=== PATIENT | female | born 1965 | race Caucasian/White ===

== ENCOUNTER 2025-01-01 10:28 | Inpatient (IN) ==
--- NOTE | 2025-01-01 10:45 | Emergency Department Note ---
Impression & Plan Pulmonary embolism, UTI (urinary tract infection), CHF exacerbation ED Provider Note Provider: Emerson Angelo MD CHIEF COMPLAINT: Shortness of breath, send source, urinary symptoms HISTORY OF PRESENT ILLNESS: Patient is a 59-year-old female past medical history significant for type 2 diabetes on insulin, heart failure, hypertension, CAD with stenting, neuropathy, depression presenting here to be ambulance from her apartment today. Patient states that her last day or 2 she has been develop worsening shortness of breath. Does states she has had some dietary discretion but having some salt and think she might be a little more swollen than normal. Has been taking most of her medicines she states but did not take them yet this morning. Did not take extra torsemide. Reports she has had some urinary frequency and discomfort. Also reports over the last several weeks has been dealing with a small skin scab and wound on the back of her right neck as well as in the right hip. Maybe little bit of blood or serous discharge from the but no pus reported by the patient. She thinks he might of scratched them some. Was seen by her primary doctor regarding these advised some cream and completed a course of Bactrim. No fevers reported. Denies significant chest pain at this time or abdominal pain. EMS did give a DuoNeb with some mild improvement of her breathing status although she was not reported to be hypoxic for them. Denies a history of asthma or smoking. Patient does states her blood sugars have been running high. PAST MEDICAL HISTORY: As noted above MEDICATIONS: Reviewed home medication list although did not take them yet this morning SOCIAL HISTORY: Non-smoker, resides via self at [facility] PHYSICAL EXAM: GENERAL: alert and oriented in no acute distress on stretcher Head: normocephalic and atraumatic EYES: No injection, discharge or icterus. PERRL, EOMI. NECK: Trachea midline. Supple. ENT: Mucous membranes pink and moist. Pharynx without erythema or exudate. LUNGS: Airway patent. No retractions but somewhat tachypneic. Breath sounds clear with good air entry bilaterally. HEART: Regular rate and rhythm. No chest wall tenderness ABDOMEN: Soft and non-tender, without guarding or rebound. Stable pelvis. SKIN: Acyanotic, warm, dry, with approximately 1 cm area of the right posterior hairline neck region of some scabbing ulceration without surrounding erythema or fluctuance as well as an approximate 2 cm area of the right lateral hip in the greater trochanter region. EXTREMITIES: Without swelling, tenderness or deformity NEUROLOGICAL: No focal deficits. No aphasia. No facial droop or slurred speech. Normal strength and tone in the extremities. Sensation to gross touch normal. Ambulatory. EK bpm normal sinus rhythm. No acute ST segment elevation or depression with nonspecific T wave flattening. QTc 474. CONTINUOUS CARDIAC MONITORING: was ordered and showed a heart rate of 80s to 90s bpm in normal sinus rhythm PDMP was checked without noted issue. GCS 15. Patient's laboratory studies and imaging reviewed. Differential includes Reactive airway disease, pneumonia, pneumothorax, COPD, CHF, infections, cardiac ischemia, pulmonary embolism, musculoskeletal, gastrointestinal, as well as other pathologies. IMPRESSION/MEDICAL DECISION MAKING: Case management assisted with additional records from [facility] as the patient does not have records in our system. Patient evidently does have a history of some urinary frequency in the past and has been maintained on a SGLT2 medication could be contributing to her polyuria especially in light of elevated blood sugars. No fevers reported. No significant trauma reported. Somewhat tachypneic but not particularly wheezy. Does seem somewhat fluid overloaded and swollen. Question of component of possible fluid overload/CHF/pulmonary hypertension might be at play. Blood work checked here without evidence of significant anemia or leukocytosis. Chest x-ray per radiology and my review shows cardiomegaly without evidence of significant pulmonary edema or effusion. Creatinine less than 1 without severe electrolyte abnormalities again with elevated blood sugar 441 here. Will provide some Lasix for some additional diuresis and again attempt a urinalysis collection to exclude UTI. Very slight hypoxia 88%. Give a small additional dose of insulin given the hyperglycemia here. Patient with some small areas of ulceration at the neck and thigh do not appear like abscesses or severely inflamed. She does not appear septic. Will give a dose of doxycycline for any possible small cellulitis that these areas are MRSA but certainly does not appear to have a disseminated infection/sepsis at this point. Patient placed on oxygen for comfort and is not hypoxic here. Given her ongoing respiratory symptoms however to complete a CT of the chest to exclude PE. Small segmental PE noted with some possible acute or chronic congestive change. Again being diuresed. Will anticoagulate with the PE findings and heparin drip was ordered. UA questionable for infection with nitrates and bacteria. Covered empirically with ceftriaxone. Discussed with the patient we will bring her in for further care. She is agreeable with this plan. Urine sent for culture today. Hospitalist team contacted. DIAGNOSIS: Shortness of breath, wounds, hyperglycemia secondary to type 2 diabetes DISPOSITION: Hospitalist will evaluate Patient was agreeable with this plan. Critical Care I have personally spent 33 minutes of critical care time in the direct management of this patient. This includes bedside care, interpretation of diagnostic studies, and testing, discussion with consultants, patient, and other required patient management activities. These 33 minutes is in excess of all separately billable procedures. Past Med/Surg History Problem List (Updated 01/01/25 @ 16:00 by Emerson Angelo M.D.) Flank pain CHF exacerbation (Acute) UTI (urinary tract infection) (Acute) Pulmonary embolism (Acute) Medical History (Updated 01/01/25 @ 16:00 by Emerson Angelo M.D.) Gout HFrEF (heart failure with reduced ejection fraction) Anxiety History of osteomyelitis Depression Peripheral polyneuropathy Venous stasis of both lower extremities Primary osteoarthritis of both knees Acquired absence of left great toe Overactive bladder BMI 60.0-69.9, adult Coronary artery disease Hypertension EDGARD treated with BiPAP Dyslipidemia Type 2 diabetes mellitus Surgical History (Updated 01/01/25 @ 14:56 by CONCHA Doan) Status post amputation of left great toe S/P angioplasty with stent S/P ICD (internal cardiac defibrillator) procedure Family History (Updated 01/01/25 @ 14:59 by CONCHA Doan) Mother Heart disease Pancreatic cancer Father Heart disease Diabetes Sister Heart disease Thyroid cancer Grandmother (Maternal) Breast cancer Aunt Breast cancer Daughter Heart disease Diabetes Son Heart disease Diabetes Hypertension Social History (Updated 01/01/25 @ 14:59 by CONCHA Doan) Smoking Status: Never smoker Hx Alcohol Use: No Hx Substance Use: No Preferred Language: Yi Communication Ability: Effective Current Living Situation Comment: [facility] Feels Safe at Home: Yes Assistive Devices: Wheelchair Allergies Allergies Allergy/AdvReac Type Severity Reaction Status Date / Time spironolactone AdvReac Unknown Unknown Verified 06/29/24 11:02 Home Meds Home Medications Medication Instructions Recorded Confirmed allopurinol 100 mg tablet 100 mg PO QAM 01/01/25 01/01/25 aspirin 81 mg tablet,delayed 81 mg PO DAILY 01/01/25 01/01/25 release bupropion HCl 150 mg tablet,12 hr 150 mg PO QAM 01/01/25 01/01/25 sustained-release cholecalciferol (vitamin D3) 50 50 mcg PO DAILY 01/01/25 01/01/25 mcg (2,000 unit) capsule (Vitamin D3) clopidogrel 75 mg tablet 75 mg PO DAILY 01/01/25 01/01/25 colchicine 0.6 mg tablet 0.6 mg PO QAM 01/01/25 01/01/25 dulaglutide 1.5 mg/0.5 mL 1.5 mg subcut WK 01/01/25 01/01/25 subcutaneous pen injector (Trulicity) empagliflozin 10 mg tablet 10 mg PO QAM 01/01/25 01/01/25 (Jardiance) glipizide 10 mg tablet 10 mg PO QAM 01/01/25 01/01/25 insulin glargine 100 unit/mL (3 67 unit subcut HS 01/01/25 01/01/25 mL) subcutaneous pen (Lantus Solostar U-100 Insulin) metoprolol succinate 25 mg 25 mg PO QAM 01/01/25 01/01/25 tablet,extended release 24 hr sacubitril 97 mg-valsartan 103 mg 1 tab PO QAM 01/01/25 01/01/25 tablet (Entresto) sertraline 100 mg tablet 200 mg PO DAILY 01/01/25 01/01/25 torsemide 20 mg tablet 20 mg PO QAM 01/01/25 01/01/25 vitamin B complex 1 tab PO DAILY 01/01/25 01/01/25 Results & Data (ED) Vital Signs Vital Signs - 24 hr 01/01/25 10:30 01/01/25 10:48 01/01/25 10:49 Temperature 36.8 C Temperature Source Oral Pulse Rate 90 Pulse Rate [Apical] Pulse Rhythm Regular Pulse Strength Normal Respiratory Rate 25 H Respiratory Effort / Characteristics Spontaneous SOB on Exertion Spontaneous SOB on Exertion Respiratory Depth Normal Respiratory Pattern Regular Tachypnea Regular Blood Pressure 149/64 H Blood Pressure [Right Arm] Blood Pressure Mean 92 Blood Pressure Mean [Right Arm] Blood Pressure Position Semi-fowlers Blood Pressure Position [Right Arm] Pulse Oximetry 95 94 Oxygen Delivery Method Room Air Room Air Room Air Oxygen Flow Rate Sepsis New/Unexplained Change in Mental Status No Sepsis Action Taken by Nursing No Action Required Oxygen Flow Rate - Titration Pulse Oximetry Post Tiitration 01/01/25 11:00 01/01/25 11:06 01/01/25 11:52 Temperature Temperature Source Pulse Rate Pulse Rate [Apical] 87 Pulse Rhythm Pulse Strength Respiratory Rate 25 H Respiratory Effort / Characteristics Non-Labored Spontaneous Respiratory Depth Normal Respiratory Pattern Blood Pressure Blood Pressure [Right Arm] 126/68 Blood Pressure Mean Blood Pressure Mean [Right Arm] 87 Blood Pressure Position Blood Pressure Position [Right Arm] Semi-fowlers Pulse Oximetry 92 98 88 L Oxygen Delivery Method Nasal Cannula Nasal Cannula Room Air Nasal Cannula Oxygen Flow Rate 2 4 Sepsis New/Unexplained Change in Mental Status Sepsis Action Taken by Nursing Oxygen Flow Rate - Titration 0 2 Pulse Oximetry Post Tiitration 94 96 01/01/25 13:02 01/01/25 13:31 Temperature Temperature Source Pulse Rate 92 H Pulse Rate [Apical] 84 Pulse Rhythm Pulse Strength Respiratory Rate 29 H Respiratory Effort / Characteristics Non-Labored Spontaneous Respiratory Depth Normal Respiratory Pattern Blood Pressure Blood Pressure [Right Arm] 144/78 H Blood Pressure Mean Blood Pressure Mean [Right Arm] 100 Blood Pressure Position Blood Pressure Position [Right Arm] Semi-fowlers Pulse Oximetry 95 Oxygen Delivery Method Nasal Cannula Oxygen Flow Rate 2 Sepsis New/Unexplained Change in Mental Status Sepsis Action Taken by Nursing Oxygen Flow Rate - Titration Pulse Oximetry Post Tiitration Laboratory Data 01/01/25 10:45 01/01/25 10:45 Lab Results 01/01/25 01/01/25 Range/Units 10:45 11:58 WBC 10.02 (4.8-10.8) K/ul RBC 5.26 (4.20-5.40) M/uL Hgb 13.6 (12.0-16.0) g/dl Hct 42.3 (37.0-47.0) % MCV 80.4 (80.0-100.0) fL MCH 25.9 (25.0-34.0) pg MCHC 32.2 (32.0-36.0) g/dL RDW Std Deviation 49.0 H (36.4-46.3) fL RDW Coeff of Anne 17.1 H (11.5-14.5) % Plt Count 210 (130-400) K/uL MPV 10.5 (9.4-12.4) fL Immature Gran % (Auto) 0.3 % Neut % (Auto) 73.0 % Lymph % (Auto) 17.2 % Bremer % (Auto) 6.6 % Eos % (Auto) 2.1 % Baso % (Auto) 0.8 % Neut # (Auto) 7.32 H (1.40-6.50) K/uL Lymph # (Auto) 1.72 (1.20-3.40) K/uL Bremer # (Auto) 0.66 H (0.11-0.59) K/uL Eos # (Auto) 0.21 (0.00-0.50) K/uL Baso # (Auto) 0.08 (0.00-0.20) K/uL Immature Gran # (Auto) 0.03 (0.01-0.20) K/uL PT 10.9 (9.0-12.0) Seconds INR 1.0 (0.9-1.1) Sodium 133 L (136-145) mmol/L Potassium 4.7 (3.5-5.1) mmol/L Chloride 99 (98-107) mmol/L Carbon Dioxide 25 (21-32) mmol/L Anion Gap 9 (3-11) BUN 24 H (6-23) mg/dl Creatinine 0.94 (0.6-1.2) mg/dl Est Cr Clr Drug Dosing 95.8 ml/min eGFR 69.47 BUN/Creatinine Ratio 25.5 H (10-20) Glucose 441 H* (70-99(Fasting)) mg/dl Calcium 9.1 (8.6-10.3) mg/dl Magnesium 2.1 (1.7-2.4) mg/dl Total Bilirubin 0.5 (0.2-1.0) mg/dl AST 13 (13-39) U/L ALT 14 (7-52) U/L Alkaline Phosphatase 112 H (34-104) U/L Troponin I High Sens 14.1 H (0-14) pg/ml B-Natriuretic Peptide 230 H (0-100) pg/ml Total Protein 7.5 (6.0-8.3) gm/dl Albumin 3.3 L (3.4-5.0) gm/dl Globulin 4.2 H (2.5-4.0) gm/dl Albumin/Globulin Ratio 0.8 L (0.9-2) Procalcitonin 0.03 (0-0.5) ng/ml TSH 3.275 (0.300-4.500) uIu/ml Urine Color Yellow Urine Appearance Clear (Clear) Urine pH 5.0 (4.5-7.5) Ur Specific [place] 1.037 H (1.000-1.030) Urine Protein Trace H (Negative) Urine Glucose (UA) 3+ H (Negative) Urine Ketones Negative (Negative) Urine Blood 1+ H (Negative) Urine Nitrite Positive A (Negative) Urine Bilirubin Negative (Negative) Urine Urobilinogen Negative (Negative) Ur Leukocyte Esterase Negative (Negative) Urine WBC (Auto) 0-5 (0-5) /hpf Urine RBC (Auto) 0-2 (0-2) /hpf U Hyaline Cast (Auto) 0-2 (0-2) /lpf U Epithel Cells (Auto) 0-2 (0-2) /hpf Urine Bacteria (Auto) 4+ H (None Seen) Urine Comment SARS-CoV-2 (PCR) NEGATIVE (Negative) Influenza Type A (PCR) Negative (Neg) Influenza Type B (PCR) Negative (Neg) RSV (RT-PCR) Negative (Neg) Administered Medications Heparin Sodium/Dextrose (Heparin 95395 Unit/500 Ml D5w) 25,000 units in 500 mls @ 34 mls/hr IV .[id number] [facility]; Protocol Stop: 01/31/25 12:59 Last Admin: 01/01/25 13:42 Dose: 1,700 units/hr, 34 mls/hr Documented By: DARIUS Co-signed By: CHRISTAL Discontinued Medications Doxycycline Hyclate (Doxycycline Hyclate 100 Mg Cap) 100 mg PO NOW STA Stop: 01/01/25 11:27 Last Admin: 01/01/25 11:52 Dose: 100 mg Documented By: MMF Furosemide (Furosemide 40 Mg/4 Ml Vial) 80 mg IV ONE ONE Stop: 01/01/25 11:27 Last Admin: 01/01/25 11:52 Dose: 80 mg Documented By: MMF Heparin Sodium (Porcine) (Heparin Sod (Porcine) 1000 Unit/Ml) 1 units IV NOW ONE Stop: 01/01/25 12:56 Last Admin: 01/01/25 13:43 Dose: 8,000 units Documented By: DARIUS Co-signed By: CHRISTAL Heparin Sodium/Dextrose (Heparin Iv Adult Wt-Based Standard W/ Initial Bolus Protocol) 1 each IV NOW STA; Protocol Stop: 01/01/25 12:41 Last Admin: 01/01/25 13:33 Dose: Not Given Documented By: DARIUS Ceftriaxone Sodium (Rocephin) 2,000 mg in 50 mls @ 100 mls/hr IV NOW STA Stop: 01/01/25 13:03 Last Infusion: 01/01/25 13:42 Dose: Infused Documented By: Admin: 01/01/25 13:16 Dose: 100 mls/hr Documented By: DARIUS Insulin Human Regular (Novolin-R Insulin Per Unit Charge) 8 units IV NOW STA Stop: 01/01/25 11:28 Last Admin: 01/01/25 11:52 Dose: 8 units Documented By: DARIUS Co-signed By: DANDY Ioversol (Optiray 320 125ml) 119 ml IV ONCE ONE Stop: 01/01/25 12:07 Last Admin: 01/01/25 12:06 Dose: 119 ml Documented By: SAV Imaging Data Radiologist's Impression: Chest X-Ray 01/01/25 10:41 SINGLE VIEW CHEST CLINICAL HISTORY: Dyspnea. Lower extremity edema FINDINGS: An AP, portable, upright chest radiograph is compared to study dated 06/27/2024. A 2-lead cardiac AICD is unchanged in position. The heart is enlarged noting atherosclerotic calcification of the thoracic. There is pulmonary vascular congestion with interstitial edema. No large pleural effusion or pneumothorax is seen. The skeletal structures are osteopenic. The bony thorax is grossly intact. IMPRESSION: Cardiomegaly and AICD without evidence of congestive failure and pulmonary edema. Radiographic follow-up to resolution is recommended. ACT 112: Negative or not required by law. Electronically signed by: Corby Garza M.D. 01/01/2025 11:20 AM Chest CTA 01/01/25 11:25 CT ANGIOGRAM OF THE CHEST CLINICAL HISTORY: Dyspnea COMPARISON STUDY: Chest x-ray dated 01/01/2025 TECHNIQUE: Following the IV administration of 119 cc of Optiray 320, CT angiogram of the chest was performed from the upper abdomen to the thoracic inlet utilizing the pulmonary embolus protocol. Images are reviewed in the axial, sagittal, and coronal planes. 3-D MIPS images are created and assessed. IV contrast was administered without complication. A dose lowering technique was utilized adhering to the principles of ALARA. The examination is degraded by suboptimal contrast opacification of the pulmonary arteries. There is also streak artifact from the body wall abutting the CT gantry. CT DOSE: 1178.89 mGy.cm FINDINGS: Thyroid: Imaged portions of the thyroid gland are normal in size and attenuation. Thoracic aorta: There is mild atherosclerotic calcification of the thoracic aorta, which is normal in caliber and demonstrates standard 3-vessel arch anatomy. No dissection is seen. Pulmonary vasculature: The pulmonary trunk is normal in caliber. There are apparent filling defects within an anterior branch of the right upper lobe pulmonary artery seen on image #166 that likely represent subsegmental pulmonary emboli. No additional pulmonary emboli are identified bilaterally. Heart: A cardiac pacemaker is seen in the left chest wall. The heart is enlarged and without pericardial effusion. The coronary arteries are densely calcified. Lungs and pleural spaces: Evaluation of the lung parenchyma is modestly degraded by motion artifact. There is no airspace consolidation or pleural effusion. Mild intralobular septal thickening could represent acute versus chronic congestive change. The trachea and central airways are clear. 4 mm pulmonary nodules are seen at the left lung base on image #57, #65, and #76. There is a 4 mm right lower lobe pulmonary nodule seen on image #86. Mediastinum: There is no mediastinal lymphadenopathy. Vandana: Clear. Axillae: There is no axillary lymphadenopathy. Upper abdomen: The liver is enlarged and osteoporotic. Peripheral calcified splenic artery aneurysms measure up to 8 mm. A small hiatal hernia is noted. Skeletal structures: The skeletal structures are osteopenic. Degenerative change is noted in the shoulders and spine. No lytic or blastic bony lesions are seen. There are chronic/healed right-sided rib fractures. IMPRESSION: 1. There are apparent filling defects within a segmental branch of the right upper lobe pulmonary artery, likely representing pulmonary embolus. 2. No additional pulmonary emboli are seen. 3. Cardiomegaly and cardiac pacemaker. 4. Moderate lower septal thickening could be seen with acute versus chronic congestive change. Correlate clinically. 5. No airspace consolidation or pleural effusion is identified. 6. The liver is enlarged and see ptotic. 7. Low suspicion pulmonary nodules measured up to 4 mm. If warranted these can be followed as per the Fleischner criteria. See below. Please refer to below summary of Fleischner criteria recommendations for follow- up of incidental CT nodules (Jose Luis Casiano, Guidelines for management of small pulmonary nodules detected on CT scans: A statement from the Fleischner Society, Radiology 237: [phone].) SOLID NODULES Solitary nodule size: <6 mm * low risk patients: no follow-up needed * high risk patients: optional CT at 12 months Solitary nodule size: 6-8 mm * low risk patients: follow-up at 6-12 months, then consider further follow-up at 18-24 months * high risk patients: initial follow-up CT at 6-12 months and then at 18-24 months if no change Solitary nodule size: >8 mm * either low or high risk patients - consider follow-up CT at 3 months, and/or CT-PET, and/or biopsy Multiple nodules size: <6 mm * low risk patients: no routine follow-up * high risk patients: optional CT at 12 months Multiple nodules size: 6-8 mm * low risk patients: follow-up at 3-6 months, then consider further follow-up at 18-24 months * high risk patients: follow-up at 3-6 months, then at 18-24 months if no change Multiple nodules size: >8 mm * low risk patients: follow-up at 3-6 months, then consider further follow-up at 18-24 months * high risk patients: follow-up at 3-6 months, then at 18-24 months if no change Note: newly detected indeterminate nodule in persons 35 years of age or older. * low risk patients: minimal or absent history of smoking and/or other known risk factors * high risk patients: history of smoking or of other known risk factors (e.g. first degree relative with lung cancer, or exposure to asbestos, radon, uranium) * if a nodule up to 8 mm is partly solid or is ground glass further follow-up is required after 24 months to exclude possible slow growing adenocarcinoma (RUPA) SUBSOLID NODULES Solitary pure ground-glass nodule * nodule size <6 mm - no CT follow-up required * nodule size >=6 mm - follow-up CT at 6-12 months, then every 2 years until 5 years Solitary part-solid nodule * nodule size <6 mm - no CT follow-up required * nodule size >=6 mm - follow-up CT at 3-6 months. If unchanged, and solid component remains <6 mm, then annual follow-up for 5 years Multiple subsolid nodules * nodule size <6 mm - follow-up CT at 3-6 months, consider further follow-up at 2 and 4 years if stable * nodule size >=6 mm - follow-up CT at 3-6 months, subsequent management based on the most suspicious nodule(s) ACT 112: Negative or not required by law. Electronically signed by: Corby Garza M.D. 01/01/2025 12:32 PM Discharge Plan Visit Data Chief Complaint: Shortness of Breath/Dyspnea Stated Complaint: SOB, URINARY SX ED Provider: Emerson Angelo Discharge Problem: Pulmonary embolism, UTI (urinary tract infection), CHF exacerbation Patient Disposition: Being Evaluated by Hospitalist Condition: Fair Discharge Instructions Interventions: ED Discharge Assessment Last Done: 01/01/25 15:10
[2025-01-01 11:01] LABS: Hematocrit (blood only) 42.3 % (37.0-47.0); Hemoglobin 13.6 g/dl (12.0-16.0); Immature Granulocytes # (auto) 0.03 K/uL (0.01-0.20); Immature Granulocytes % (auto) 0.3 %; Mean Corpuscular Hemoglobin 25.9 pg (25.0-34.0); Mean Corpuscular Volume 80.4 fL (80.0-100.0); Platelet Count 210 K/uL (130-400); RDW Standard Deviation 49.0 fL (36.4-46.3); Red Blood Count 5.26 M/uL (4.20-5.40); White Blood Count 10.02 K/ul (4.8-10.8)
[2025-01-01 11:21] LABS: Alanine Aminotransferase 14.0 U/L (7-52); Albumin Globulin Ratio 0.8 (0.9-2); Alkaline Phosphatase 112.0 U/L (34-104); Anion Gap 9.0 (3-11); Bilirubin,Total 0.5 mg/dl (0.2-1.0); Blood Urea Nitrogen 24.0 mg/dl (6-23); Calcium 9.1 mg/dl (8.6-10.3); Carbon Dioxide 25.0 mmol/L (21-32); Chloride 99.0 mmol/L (98-107); Creatinine Clr Calc Pharmacy 95.8 ml/min; Globulin 4.2 gm/dl (2.5-4.0); Glucose 441.0 mg/dl (70-99(Fasting)); Magnesium 2.1 mg/dl (1.7-2.4); Potassium 4.7 mmol/L (3.5-5.1); Sodium 133.0 mmol/L (136-145); Total Protein 7.5 gm/dl (6.0-8.3)
--- NOTE | 2025-01-01 11:22 | XRay Report ---
SINGLE VIEW CHEST CLINICAL HISTORY: Dyspnea. Lower extremity edema FINDINGS: An AP, portable, upright chest radiograph is compared to study dated 06/27/2024. A 2-lead car diac AICD is unchanged in position. The heart is enlarged noting atherosclerotic calcification of the thoracic. There is pulmonary vascular congestion with interstitial edema. No large pleural effusion or pneumothorax is seen. The skeletal structures are osteopenic. The bony thorax is grossly intact. IMPRESSION: Cardiomegaly and AICD without evidence of congestive failure and pulmonary edema. Radiogr aphic follow-up to resolution is recommended. ACT 112: Negative or not required by law. Electronically signed by: Corby Garza M.D. 01/01/2025 11:20 AM
[2025-01-01 11:25] LABS: INR 1.0 (0.9-1.1); Prothrombin Time 10.9 Seconds (9.0-12.0)
[2025-01-01 11:35] LABS: Thyroid Stimulating Hormone 3.275 uIu/ml (0.300-4.500)
[2025-01-01] MEDS: FUROSEMIDE 40 MG/4 ML VIAL IV ONE (11:52)
[2025-01-01] MEDS: DOXYCYCLINE HYCLATE 100 MG CAP PO STA (11:52)
[2025-01-01] MEDS: NovoLIN-R INSULIN PER UNIT CHARGE IV STA (11:52)
[2025-01-01] MEDS: OPTIRAY 320 125ml IV ONE (12:06)
[2025-01-01 12:23] LABS: Appearance Urine Clear (Clear); Bacteria Urine Automated 4+ (None Seen); Cast Urine Automated 0-2 /lpf (0-2); Epithelial Cell Urine Auto 0-2 /hpf (0-2); Glucose Urine UA 3+ (Negative); RBC Urine Automated 0-2 /hpf (0-2); WBC Urine Automated 0-5 /hpf (0-5)
--- NOTE | 2025-01-01 12:33 | CT Scan Report ---
CT ANGIOGRAM OF THE CHEST CLINICAL HISTORY: Dyspnea COMPARISON STUDY: Chest x-ray dated 01/01/2025 TECHNIQUE: Following the IV administration of 119 cc of Optiray 320, CT angiogram of the chest was pe rformed from the upper abdomen to the thoracic inlet utilizing the pulmonary embolus protocol. Images are reviewed in the axial, sagittal, and coronal planes. 3-D MIPS images are created and assessed. I V contrast was administered without complication. A dose lowering technique was utilized adhering to the principles of ALARA. The examination is degraded by suboptimal contrast opacification of the pul monary arteries. There is also streak artifact from the body wall abutting the CT gantry. CT DOSE: 1178.89 mGy.cm FINDINGS: Thyroid: Imaged portions of the thyroid gland are normal in size and attenuation. Thoracic aorta: There is mild atherosclerotic calcification of the thoracic aorta, which is normal in caliber and demonstrates standard 3-vessel arch anatomy. No dissection is seen. Pulmonary vasculature: The pulmonary trunk is normal in caliber. There are apparent filling defects w ithin an anterior branch of the right upper lobe pulmonary artery seen on image #166 that likely rep resent subsegmental pulmonary emboli. No additional pulmonary emboli are identified bilaterally. Heart: A cardiac pacemaker is seen in the left chest wall. The heart is enlarged and without pericard ial effusion. The coronary arteries are densely calcified. Lungs and pleural spaces: Evaluation of the lung parenchyma is modestly degraded by motion artifact. There is no airspace consolidation or pleural effusion. Mild intralobular septal thickening could rep resent acute versus chronic congestive change. The trachea and central airways are clear. 4 mm pulmon jairon nodules are seen at the left lung base on image #57, #65, and #76. There is a 4 mm right lower lo be pulmonary nodule seen on image #86. Mediastinum: There is no mediastinal lymphadenopathy. Vandana: Clear. Axillae: There is no axillary lymphadenopathy. Upper abdomen: The liver is enlarged and osteoporotic. Peripheral calcified splenic artery aneurysms measure up to 8 mm. A small hiatal hernia is noted. Skeletal structures: The skeletal structures are osteopenic. Degenerative change is noted in the shou lders and spine. No lytic or blastic bony lesions are seen. There are chronic/healed right-sided rib fractures. IMPRESSION: 1. There are apparent filling defects within a segmental branch of the right upper lobe pulmonary art aston, likely representing pulmonary embolus. 2. No additional pulmonary emboli are seen. 3. Cardiomegaly and cardiac pacemaker. 4. Moderate lower septal thickening could be seen with acute versus chronic congestive change. Correl ate clinically. 5. No airspace consolidation or pleural effusion is identified. 6. The liver is enlarged and see ptotic. 7. Low suspicion pulmonary nodules measured up to 4 mm. If warranted these can be followed as per the Fleischner criteria. See below. Please refer to below summary of Fleischner criteria recommendations for follow-up of incidental CT n odules (Jose Luis Casiano, Guidelines for management of small pulmonary nodules detected on CT scans: A sta laurence from the Fleischner Society, Radiology 237: [phone].) SOLID NODULES Solitary nodule size: <6 mm * low risk patients: no follow-up needed * high risk patients: optional CT at 12 months Solitary nodule size: 6-8 mm * low risk patients: follow-up at 6-12 months, then consider further follow-up at 18-24 months * high risk patients: initial follow-up CT at 6-12 months and then at 18-24 months if no change Solitary nodule size: >8 mm * either low or high risk patients - consider follow-up CT at 3 months, and/or CT-PET, and/or biopsy Multiple nodules size: <6 mm * low risk patients: no routine follow-up * high risk patients: optional CT at 12 months Multiple nodules size: 6-8 mm * low risk patients: follow-up at 3-6 months, then consider further follow-up at 18-24 months * high risk patients: follow-up at 3-6 months, then at 18-24 months if no change Multiple nodules size: >8 mm * low risk patients: follow-up at 3-6 months, then consider further follow-up at 18-24 months * high risk patients: follow-up at 3-6 months, then at 18-24 months if no change Note: newly detected indeterminate nodule in persons 35 years of age or older. * low risk patients: minimal or absent history of smoking and/or other known risk factors * high risk patients: history of smoking or of other known risk factors (e.g. first degree relative with lung cancer, or exposure to asbestos, radon, uranium) * if a nodule up to 8 mm is partly solid or is ground glass further follow-up is required after 24 m onths to exclude possible slow growing adenocarcinoma (RUPA) SUBSOLID NODULES Solitary pure ground-glass nodule * nodule size <6 mm - no CT follow-up required * nodule size >=6 mm - follow-up CT at 6-12 months, then every 2 years until 5 years Solitary part-solid nodule * nodule size <6 mm - no CT follow-up required * nodule size >=6 mm - follow-up CT at 3-6 months. If unchanged, and solid component remains <6 mm, then annual follow-up for 5 years Multiple subsolid nodules * nodule size <6 mm - follow-up CT at 3-6 months, consider further follow-up at 2 and 4 years if sta ble * nodule size >=6 mm - follow-up CT at 3-6 months, subsequent management based on the most suspiciou s nodule(s) ACT 112: Negative or not required by law. Electronically signed by: Corby Garza M.D. 01/01/2025 12:32 PM
[2025-01-01 13:06] LABS: Influenza A virus by PCR Negative (Neg); Influenza B virus by PCR Negative (Neg); SARS CoV2 RNA(COVID-19) Ceph NEGATIVE (Negative)
[2025-01-01] MEDS: cefTRIAXone SODIUM 2,000 MG/50 ML BAG IV STA (13:16)
[2025-01-01] MEDS: Heparin IV Adult Wt-Based Standard w/ INITIAL Bolus Protocol IV STA (13:33)
--- NOTE | 2025-01-01 13:35 | History & Physical Report ---
Date of Service January 01, 2025 Assessment & Plan (1) Pulmonary embolism: (2) CHF exacerbation: (3) UTI (urinary tract infection): (4) Flank pain: (5) HFrEF (heart failure with reduced ejection fraction): (6) Coronary artery disease: (7) Type 2 diabetes mellitus: (8) EDGARD treated with BiPAP: (9) Depression: (10) Gout: Plan 59 year old female with PMH significant for type 2 diabetes with polyneuropathy, dyslipidemia, EDGARD on Bipap, HFrEF, mixed etiology cardiomyopathy with severe LV dysfunction s/p ICD (2018), hypertension, CAD s/p stent (2015), gout, osteoarthritis, depression and anxiety who presented to the ED on 01/01/2025 with worsening SOB and was found to have a PE in her RUL. Pulmonary embolism Patient presented with SOB and was hypoxic 88% on RA in the ED Chest CTA revealed PE in RUL Obtain bilateral venous doppler Hypercoagulable labs pending Heparin gtt UTI Patient reports "hot" urine and incomplete bladder emptying UA positive with nitrites and bacteria Received ceftriaxone in the ED - continue Follow urine culture Flank pain Patient reports sharp intermittent flank pain No leukocytosis or fevers Obtain CT abdomen and pelvis Wounds Back of the neck wound x4 weeks Right hip wound x3 weeks Received doxycycline in the ED Notes hip wound is very painful - PRN tylenol and oxycodone for severe pain WOCN consult HFrEF Cardiomyopathy with severe LV dysfunction s/p ICD Hypertension Follows with [facility] last seen January 2024 Notes noncompliance with home torsemide BNP 230 but CXR without evidence of congestion or pulmonary edema Received IV lasix 80mg in ED Continue Entresto, metoprolol, torsemide Low sodium diet and 2L fluid restriction Daily weights - patient reports last known weight around 341lb with weight here 358lb Accurate I&Os CAD s/p stent Dyslipidemia Continue aspirin, plavix, atorvastatin Type 2 diabetes Admitting glucose 441 with no anion gap and negative ketones in urine Uncontrolled sugars with average glucose 297 and medication noncompliance per record review A1C 10.4 as of 12/28/2024 Home glipizide, Trulicity, Jardiance on hold while inpt BSG ACHS and SSI while inpt Glycemic pharmacy consult EDGARD Continue bipap at night and with naps Depression/anxiety Continue bupropion and sertraline Gout Continue allopurinol Home colchicine on hold while on Heparin gtt DVT Prophylaxis: Heparin gtt Code Status: FULL CODE - As per discussion at bedside with the patient. PCP: Lindsay Del Cid Disposition: admit to [facility] tele Patient seen in collaboration with Dr Puentes. Please see addendum. I spent a total of 70 minutes coordinating, documenting and providing care for this patient excluding time spent in the performance of separately billed services or time spent by another provider/QHP. Admission and Anticipated Discharge Date Admission Date: 01/01/2025 History of Present Illness Chief Complaint: SOB Primary Care Provider: Lindsay Del Cid MD 59 year old female with PMH significant for type 2 diabetes with polyneuropathy, dyslipidemia, EDGARD on Bipap, HFrEF, mixed etiology cardiomyopathy with severe LV dysfunction s/p ICD (2019), hypertension, CAD s/p stent (2016), gout, osteoarthritis, depression and anxiety who presented to the ED on 01/01/2025 with SOB since yesterday. Patient reports that she has been getting increasingly SOB at rest with associated dry cough over the last four months. She does not exert herself and is mostly wheelchair bound. However, notes an acute worsening in SOB since yesterday. Also reports two wounds that she has been trying to get into wound care for, with no success, and for this in combination with her SOB, presented to [facility] today. She has a history of HF but notes she is not compliant with taking torsemide daily due to inconvenience of having to urinate so much. She takes it about twice per week. She reports a wound on the back of her neck that started about 4 weeks ago. Also has a wound on her right hip that started about 3 weeks ago. Notes this wound is painful. Neither are improving despite wound care prescribed by PCP. She reports it feels very hot when she urinates and notes incomplete bladder emptying but denies dysuria. Reports intermittent severe sharp flank pain that wraps to her stomach x3 episodes in the last few days. Denies nausea or vomiting. Had one episode of diarrhea this morning. Denies fevers, chills, chest pain. Denies recent falls. Lives at [facility] in independent living. Allergies Allergy/AdvReac Type Severity Reaction Status Date / Time spironolactone AdvReac Unknown Unknown Verified 06/29/24 11:02 Home Medications Medication Instructions Recorded Confirmed Type allopurinol 100 mg tablet 100 mg PO QAM 01/01/25 01/01/25 History aspirin 81 mg tablet,delayed 81 mg PO DAILY 01/01/25 01/01/25 History release bupropion HCl 150 mg tablet,12 hr 150 mg PO QAM 01/01/25 01/01/25 History sustained-release cholecalciferol (vitamin D3) 50 50 mcg PO DAILY 01/01/25 01/01/25 History mcg (2,000 unit) capsule (Vitamin D3) clopidogrel 75 mg tablet 75 mg PO DAILY 01/01/25 01/01/25 History colchicine 0.6 mg tablet 0.6 mg PO QAM 01/01/25 01/01/25 History dulaglutide 1.5 mg/0.5 mL 1.5 mg subcut WK 01/01/25 01/01/25 History subcutaneous pen injector (Trulicity) empagliflozin 10 mg tablet 10 mg PO QAM 01/01/25 01/01/25 History (Jardiance) glipizide 10 mg tablet 10 mg PO QAM 01/01/25 01/01/25 History insulin glargine 100 unit/mL (3 67 unit subcut HS 01/01/25 01/01/25 History mL) subcutaneous pen (Lantus Solostar U-100 Insulin) metoprolol succinate 25 mg 25 mg PO QAM 01/01/25 01/01/25 History tablet,extended release 24 hr sacubitril 97 mg-valsartan 103 mg 1 tab PO QAM 01/01/25 01/01/25 History tablet (Entresto) sertraline 100 mg tablet 200 mg PO DAILY 01/01/25 01/01/25 History torsemide 20 mg tablet 20 mg PO QAM 01/01/25 01/01/25 History vitamin B complex 1 tab PO DAILY 01/01/25 01/01/25 History Past Med/Surg History Problem List (Updated 01/01/25 @ 16:00 by Emerson Angelo M.D.) Flank pain CHF exacerbation (Acute) UTI (urinary tract infection) (Acute) Pulmonary embolism (Acute) Medical History (Updated 01/01/25 @ 16:00 by Emerson Angelo M.D.) Gout HFrEF (heart failure with reduced ejection fraction) Anxiety History of osteomyelitis Depression Peripheral polyneuropathy Venous stasis of both lower extremities Primary osteoarthritis of both knees Acquired absence of left great toe Overactive bladder BMI 60.0-69.9, adult Coronary artery disease Hypertension EDGARD treated with BiPAP Dyslipidemia Type 2 diabetes mellitus Surgical History (Updated 01/01/25 @ 14:56 by CONCHA Doan) Status post amputation of left great toe S/P angioplasty with stent S/P ICD (internal cardiac defibrillator) procedure Family History (Updated 01/01/25 @ 14:59 by CONCHA Doan) Mother Heart disease Pancreatic cancer Father Heart disease Diabetes Sister Heart disease Thyroid cancer Grandmother (Maternal) Breast cancer Aunt Breast cancer Daughter Heart disease Diabetes Son Heart disease Diabetes Hypertension Social History (Updated 01/01/25 @ 14:59 by CONCHA Doan) Smoking Status: Never smoker Hx Alcohol Use: Yes Hx Substance Use: No Preferred Language: Armenian Communication Ability: Effective Information Technology Account Manager Required: No Beliefs That Will Affect Care: None Current Living Situation: Alone Current Living Situation Comment: [facility] independent living Other Information That Helps Us Care for You: No Feels Safe at Home: Yes Safety Concerns: Feels Safe At This Time Assistive Devices: Glasses, Oxygen - Continuous and Wheelchair Review of Systems Review of Systems: All systems reviewed & are unremarkable except as noted in HPI & below Physical Exam Physical Exam: General/Psych: morbidly obese, sitting up in bed, NAD, conversing easily Head: normocephalic, atraumatic Eyes: normal inspection, PERRL, conjunctivae pink ENT: external ear and nose normal, oropharynx normal Neck: normal visual inspection, trachea midline Respiratory: normal respiratory effort, lungs clear to auscultation, no wheeze/rales/rhonchi, no accessory muscle use Cardiovascular: regular rate and rhythm, no murmur/rub/gallop, no JVD Extremities: no cyanosis or clubbing, normal peripheral pulses, venous stasis of BLE with 2+ edema Abdomen/GI: normal bowel sounds, soft, nontender, CVA tenderness on right flank Neurologic/MSK: A+Ox3, motor strength 5/5, moves all extremities Skin: no rashes, normal color, warm and dry; small circular wound with scab formation and surrounding erythema on back of neck; small circular wound with eschar in the middle and surrounding erythema on right hip Results & Data Results & Data Vital Signs (Past 12 Hours) Vital Signs Temp Pulse Resp BP Pulse Ox O2 Del Method O2 Flow Rate 01/01/25 13:02 92 H 01/01/25 11:52 88 L Room Air, Nasal Cannula 01/01/25 11:06 98 Nasal Cannula 4 01/01/25 10:49 36.8 C 90 25 H 149/64 H 94 Room Air 01/01/25 10:48 Room Air 01/01/25 10:30 95 Room Air Laboratory Results Short CBC 01/01/25 Range/Units 10:45 WBC 10.02 (4.8-10.8) K/ul Hgb 13.6 (12.0-16.0) g/dl Hct 42.3 (37.0-47.0) % Plt Count 210 (130-400) K/uL BMP 01/01/25 10:45 Sodium 133 L Potassium 4.7 Chloride 99 Carbon Dioxide 25 BUN 24 H Creatinine 0.94 Glucose 441 H* Calcium 9.1 Liver Function 01/01/25 Range/Units 10:45 Total Bilirubin 0.5 (0.2-1.0) mg/dl AST 13 (13-39) U/L ALT 14 (7-52) U/L Alkaline Phosphatase 112 H (34-104) U/L Albumin 3.3 L (3.4-5.0) gm/dl Urine 01/01/25 Range/Units 11:58 Urine Color Yellow Urine Appearance Clear (Clear) Urine pH 5.0 (4.5-7.5) Ur Specific [place] 1.037 H (1.000-1.030) Urine Protein Trace H (Negative) Urine Glucose (UA) 3+ H (Negative) I have independently reviewed and interpreted patient's admitting labs including CBC, CMP, PTT, PT/INR, mag, troponin, BNP, procalcitonin, TSH. Diagnostic Findings Chest X-Ray 01/01/25 10:41 SINGLE VIEW CHEST CLINICAL HISTORY: Dyspnea. Lower extremity edema FINDINGS: An AP, portable, upright chest radiograph is compared to study dated 06/27/2024. A 2-lead cardiac AICD is unchanged in position. The heart is enlarged noting atherosclerotic calcification of the thoracic. There is pulmonary vascular congestion with interstitial edema. No large pleural effusion or pneumothorax is seen. The skeletal structures are osteopenic. The bony thorax is grossly intact. IMPRESSION: Cardiomegaly and AICD without evidence of congestive failure and pulmonary edema. Radiographic follow-up to resolution is recommended. ACT 112: Negative or not required by law. Electronically signed by: Corby Garza M.D. 01/01/2025 11:20 AM Chest CTA 01/01/25 11:25 CT ANGIOGRAM OF THE CHEST CLINICAL HISTORY: Dyspnea COMPARISON STUDY: Chest x-ray dated 01/01/2025 TECHNIQUE: Following the IV administration of 119 cc of Optiray 320, CT angiogram of the chest was performed from the upper abdomen to the thoracic inlet utilizing the pulmonary embolus protocol. Images are reviewed in the axial, sagittal, and coronal planes. 3-D MIPS images are created and assessed. IV contrast was administered without complication. A dose lowering technique was utilized adhering to the principles of ALARA. The examination is degraded by suboptimal contrast opacification of the pulmonary arteries. There is also streak artifact from the body wall abutting the CT gantry. CT DOSE: 1178.89 mGy.cm FINDINGS: Thyroid: Imaged portions of the thyroid gland are normal in size and attenuation. Thoracic aorta: There is mild atherosclerotic calcification of the thoracic aorta, which is normal in caliber and demonstrates standard 3-vessel arch anatomy. No dissection is seen. Pulmonary vasculature: The pulmonary trunk is normal in caliber. There are apparent filling defects within an anterior branch of the right upper lobe pulmonary artery seen on image #166 that likely represent subsegmental pulmonary emboli. No additional pulmonary emboli are identified bilaterally. Heart: A cardiac pacemaker is seen in the left chest wall. The heart is enlarged and without pericardial effusion. The coronary arteries are densely calcified. Lungs and pleural spaces: Evaluation of the lung parenchyma is modestly degraded by motion artifact. There is no airspace consolidation or pleural effusion. Mild intralobular septal thickening could represent acute versus chronic congestive change. The trachea and central airways are clear. 4 mm pulmonary nodules are seen at the left lung base on image #57, #65, and #76. There is a 4 mm right lower lobe pulmonary nodule seen on image #86. Mediastinum: There is no mediastinal lymphadenopathy. Vandana: Clear. Axillae: There is no axillary lymphadenopathy. Upper abdomen: The liver is enlarged and osteoporotic. Peripheral calcified splenic artery aneurysms measure up to 8 mm. A small hiatal hernia is noted. Skeletal structures: The skeletal structures are osteopenic. Degenerative change is noted in the shoulders and spine. No lytic or blastic bony lesions are seen. There are chronic/healed right-sided rib fractures. IMPRESSION: 1. There are apparent filling defects within a segmental branch of the right upper lobe pulmonary artery, likely representing pulmonary embolus. 2. No additional pulmonary emboli are seen. 3. Cardiomegaly and cardiac pacemaker. 4. Moderate lower septal thickening could be seen with acute versus chronic congestive change. Correlate clinically. 5. No airspace consolidation or pleural effusion is identified. 6. The liver is enlarged and see ptotic. 7. Low suspicion pulmonary nodules measured up to 4 mm. If warranted these can be followed as per the Fleischner criteria. See below. Please refer to below summary of Fleischner criteria recommendations for follow- up of incidental CT nodules (Jose Luis Casiano, Guidelines for management of small pulmonary nodules detected on CT scans: A statement from the Fleischner Society, Radiology 237: [phone].) SOLID NODULES Solitary nodule size: <6 mm * low risk patients: no follow-up needed * high risk patients: optional CT at 12 months Solitary nodule size: 6-8 mm * low risk patients: follow-up at 6-12 months, then consider further follow-up at 18-24 months * high risk patients: initial follow-up CT at 6-12 months and then at 18-24 months if no change Solitary nodule size: >8 mm * either low or high risk patients - consider follow-up CT at 3 months, and/or CT-PET, and/or biopsy Multiple nodules size: <6 mm * low risk patients: no routine follow-up * high risk patients: optional CT at 12 months Multiple nodules size: 6-8 mm * low risk patients: follow-up at 3-6 months, then consider further follow-up at 18-24 months * high risk patients: follow-up at 3-6 months, then at 18-24 months if no change Multiple nodules size: >8 mm * low risk patients: follow-up at 3-6 months, then consider further follow-up at 18-24 months * high risk patients: follow-up at 3-6 months, then at 18-24 months if no change Note: newly detected indeterminate nodule in persons 35 years of age or older. * low risk patients: minimal or absent history of smoking and/or other known risk factors * high risk patients: history of smoking or of other known risk factors (e.g. first degree relative with lung cancer, or exposure to asbestos, radon, uranium) * if a nodule up to 8 mm is partly solid or is ground glass further follow-up is required after 24 months to exclude possible slow growing adenocarcinoma (RUPA) SUBSOLID NODULES Solitary pure ground-glass nodule * nodule size <6 mm - no CT follow-up required * nodule size >=6 mm - follow-up CT at 6-12 months, then every 2 years until 5 years Solitary part-solid nodule * nodule size <6 mm - no CT follow-up required * nodule size >=6 mm - follow-up CT at 3-6 months. If unchanged, and solid component remains <6 mm, then annual follow-up for 5 years Multiple subsolid nodules * nodule size <6 mm - follow-up CT at 3-6 months, consider further follow-up at 2 and 4 years if stable * nodule size >=6 mm - follow-up CT at 3-6 months, subsequent management based on the most suspicious nodule(s) ACT 112: Negative or not required by law. Electronically signed by: Corby Garza M.D. 01/01/2025 12:32 PM ECG Additional Comments: I have independently reviewed and interpreted patient's admitting EKG which revealed: NSR at a rate of 90bpm with QT 388 Code Status & VTE Plan Code Status Full Code Supervising Physician Co-Signing Physician Notes Attending addendum: The patient was seen and examined in the emergency room She presented with shortness of breath and urinary symptoms noted to have pulmonary embolism and mild CHF the patient on examination and investigation Complained of some pain in the abdomen without any nausea vomiting Remains free from other symptoms on admission On examination Lying in bed without any acute distress and she is morbidly obese Hemodynamically stable blood pressure on the upper side and is afebrile Chestdecreased breath sounds bilaterally with minimal crackles at the bases HeartS1-S2, regular Abdomendistended and bowel sound present Extremities1+ edema bilaterally with chronic skin changes and redness involving the both legs Noted to have wounds to the back of the neck and also right hip area CNSalert, awake and oriented x 3 Her admission labs, EKG and imaging studies reviewed Noted to have pulmonary embolism with negative scan for DVT and started on intravenous heparin and hypercoagulable studies have been sent Possible UTI and has been getting ceftriaxone CT of the abdomen pelvis did not show any abnormalities in the abdomen Wound care consulted Cardiomyopathy with severe LV dysfunction and ICD placement remains reasonably stable Agree with assessment and plan as outlined above by Isha KERN and take the full responsibility of care in the hospital Dr Amber Puentes
[2025-01-01] MEDS: HEPARIN 25000 UNIT/500 ML D5W 25,000 UNITS/500 ML BAG IV SCH (13:42)
[2025-01-01] MEDS: HEPARIN SOD (PORCINE) 1000 UNIT/ML IV ONE (13:43)
--- NOTE | 2025-01-01 14:53 | Electrocardiogram Report ---
Test Reason : Blood Pressure : */* mmHG Vent. Rate : 90 BPM Atrial Rate : 90 BPM P-R Int : 192 ms QRS Dur : 108 ms QT Int : 388 ms P-R-T Axes : -3 -10 191 degrees QTcB Int : 474 ms Normal sinus rhythm Poor R wave progression, consider anterior CA vs. lead placement vs. LVH Abnormal ECG No previous ECGs available Confirmed by David Salgado ([id number]) on 01/01/2025 2:53:24 PM Referred By: REFERRED SELF Confirmed By: David Salgado
--- NOTE | 2025-01-01 15:08 | CT Scan Report ---
ABDOMEN AND PELVIS CT WITHOUT CONTRAST CT DOSE: 1410.22 mGy.cm HISTORY: CVA tenderness TECHNIQUE: Multiaxial CT images of the abdomen and pelvis were performed without contrast. A dose lo wering technique was utilized adhering to the principles of ALARA. COMPARISON STUDY: None FINDINGS: There are coronary artery calcifications. ABDOMEN: Liver, gallbladder, spleen, pancreas, and adrenal glands have an unremarkable non-IV contras t appearance. There is residual contrast in the renal collecting systems, ureters, and urinary bladde r which mildly limits evaluation for small renal calculi. No renal or ureteral calculi seen. There is no hydronephrosis. There are scattered atherosclerotic calcifications. No abdominal aortic aneurysm. Pelvis: Urinary bladder is mildly distended. Uterus and adnexal regions are grossly unremarkable. No bowel inflammation or obstruction seen. No free fluid, free air, or abscess. No enlarged adenopathy. Osseous structures: There is lower lumbar degenerative disc disease with pars defects and grade 1 ant erolisthesis at L5-S1. No acute osseous finding seen. IMPRESSION: No acute findings seen. Otherwise as described. ACT 112: Negative or not required by law. The above report was generated using voice recognition software. It may contain grammatical, syntax o r spelling errors. Electronically signed by: Daron Lemus M.D. 01/01/2025 3:07 PM
[2025-01-01] MEDS ORDERED: DEXTROSE 50% 50 ML SYRINGE IV PRN (15:47)
[2025-01-01] MEDS ORDERED: GLUCOSE 10 TAB/TUBE PO PRN (15:47)
[2025-01-01] MEDS ORDERED: PHARMACY GLYCEMIC MGMT CONSULT PRN (15:47)
[2025-01-01] MEDS ORDERED: GLUCOSE 40% GEL 15 GM TUBE PO PRN (15:47)
[2025-01-01] MEDS ORDERED: CARBOHYDRATES FOR HYPOGLYCEMIA PO PRN (15:47)
[2025-01-01] MEDS ORDERED: GLUCAGON FOR INJ 1 MG VIAL SQ PRN (15:47)
--- NOTE | 2025-01-01 17:26 | Ultrasound Report ---
Clinical History: Pain and swelling Technique: Venous ultrasound evaluation was performed utilizing grayscale, color Doppler and wave form evaluation. Images were also obtained with and without compression Findings: The bilateral common femoral, superficial femoral, popliteal, and visualized calf veins demonstrate normal anechoic lumens with full compressibility. Normal flow is seen on color Doppler images. Expected waveforms were produced with augmentation maneuvers Impression: No evidence of deep venous thrombosis Electronically signed by Lefty Guthrie 01-01-2025 5:26 PM
[2025-01-01] MEDS: CETIRIZINE HCL 10 MG TABLET PO SCH (17:56)
[2025-01-01] MEDS: INSULIN ASPART PER UNIT CHARGE SC SCH (18:32)
[2025-01-01 21:17] LABS: ANTI-Xa, UFH(UnfractionatedHep 0.27 IU/ml (0.3-0.7)
[2025-01-01] MEDS: LANTUS PER UNIT CHARGE SC SCH (21:48)
[2025-01-02] MEDS: DICLOFENAC SOD 1% GEL 100 GM TUBE EXT PRN (00:08)
[2025-01-02] MEDS: INSULIN ASPART PER UNIT CHARGE SC SCH (00:13)
[2025-01-02 04:31] LABS: Hematocrit (blood only) 40.6 % (37.0-47.0); Hemoglobin 13.3 g/dl (12.0-16.0); Mean Corpuscular Hemoglobin 26.5 pg (25.0-34.0); Mean Corpuscular Volume 81.0 fL (80.0-100.0); Platelet Count 198 K/uL (130-400); RDW Standard Deviation 49.4 fL (36.4-46.3); Red Blood Count 5.01 M/uL (4.20-5.40); White Blood Count 9.15 K/ul (4.8-10.8)
[2025-01-02 04:46] LABS: Anion Gap 6.0 (3-11); Blood Urea Nitrogen 22.0 mg/dl (6-23); Calcium 8.6 mg/dl (8.6-10.3); Carbon Dioxide 30.0 mmol/L (21-32); Chloride 101.0 mmol/L (98-107); Creatinine Clr Calc Pharmacy 95.8 ml/min; Glucose 153.0 mg/dl (70-99(Fasting)); Magnesium 1.9 mg/dl (1.7-2.4); Potassium 3.5 mmol/L (3.5-5.1); Sodium 137.0 mmol/L (136-145)
[2025-01-02 04:54] LABS: ANTI-Xa, UFH(UnfractionatedHep 0.26 IU/ml (0.3-0.7)
[2025-01-02] MEDS: ACETAMINOPHEN 325 MG TAB PO PRN (09:30)
[2025-01-02] MEDS: SERTRALINE HCL 100 MG TABLET PO SCH (09:31)
[2025-01-02] MEDS: CLOPIDOGREL BISULFATE 75 MG TAB PO SCH (09:31)
[2025-01-02] MEDS: TORSEMIDE 20 MG TAB PO SCH (09:31)
[2025-01-02] MEDS: VALSARTAN/SACUBITRIL 103/97MG TAB PO SCH (09:32)
[2025-01-02] MEDS: ASPIRIN 81 MG ECTAB PO SCH (09:32)
[2025-01-02] MEDS: CHOLECALCIFEROL 25 MCG (1000 UNITS) TAB PO SCH (09:32)
[2025-01-02] MEDS: VITAMIN B COMPLEX TAB PO SCH (09:32)
[2025-01-02] MEDS: METOPROLOL SUCC 25MG EXT REL TAB PO SCH (09:32)
[2025-01-02 11:25] LABS: ANTI-Xa, UFH(UnfractionatedHep 0.23 IU/ml (0.3-0.7)
[2025-01-02] MEDS: cefTRIAXone SODIUM 2,000 MG/50 ML BAG IV SCH (12:59)
--- NOTE | 2025-01-02 14:02 | Hospitalist Progress Note ---
Date of Service January 02, 2025 Assessment & Plan (1) Pulmonary embolism: (2) CHF exacerbation: (3) UTI (urinary tract infection): (4) Flank pain: (5) HFrEF (heart failure with reduced ejection fraction): (6) Coronary artery disease: (7) Type 2 diabetes mellitus: (8) EDGARD treated with BiPAP: (9) Depression: (10) Gout: Plan 59 year old female with PMH significant for type 2 diabetes with polyneuropathy, dyslipidemia, EDGARD on Bipap, HFrEF, mixed etiology cardiomyopathy with severe LV dysfunction s/p ICD (2018), hypertension, CAD s/p stent (2015), gout, osteoarthritis, depression and anxiety who presented to the ED on 01/01/2025 with worsening SOB and was found to have a PE in her RUL. Pulmonary embolism Patient presented with SOB and was hypoxic 88% on RA in the ED Chest CTA revealed PE in RUL Bilateral venous doppler negative for DVT Hypercoagulable labs pending Heparin gtt Discussed case with Dr Vasquez on 01/02 who recommends Coumadin Discussed with patient need for frequent lab monitoring on Coumadin and patient reports that she will be able to be compliant with going to the [facility] as it is very close to where she lives - there is also [facility] mobile lab option at this location if needed UTI Patient reports "hot" urine and incomplete bladder emptying UA positive with nitrites and bacteria Received ceftriaxone in the ED - continue Follow urine culture - prelim enterobacter cloacae complex Flank pain, resolved Patient reported sharp intermittent flank pain on admission No leukocytosis or fevers CT abdomen and pelvis with no acute abnormality Pain resolved Wounds Back of the neck wound x4 weeks Right hip wound x3 weeks Received doxycycline in the ED Notes hip wound is very painful - PRN tylenol and oxycodone for severe pain WOCN evaluated patient and recommending wound care follow up HFrEF Cardiomyopathy with severe LV dysfunction s/p ICD Hypertension Follows with [facility] Cardiology last seen January 2024 Notes noncompliance with home torsemide BNP 230 but CXR without evidence of congestion or pulmonary edema Received IV lasix 80mg in ED Continue Entresto, metoprolol, torsemide Low sodium diet and 2L fluid restriction Daily weights - patient reports last known weight around 341lb with weight here 358lb Accurate I&Os Echo pending read CAD s/p stent Dyslipidemia Continue aspirin, plavix, atorvastatin Type 2 diabetes Admitting glucose 441 with no anion gap and negative ketones in urine Uncontrolled sugars with average glucose 297 and medication noncompliance per record review A1C 10.4 as of 12/28/2024 Home glipizide, Trulicity, Jardiance on hold while inpt BSG ACHS and SSI while inpt Glycemic pharmacy consult EDGARD Continue bipap at night and with naps Depression/anxiety Continue bupropion and sertraline Gout Continue allopurinol Home colchicine on hold while on Heparin gtt DVT Prophylaxis: Heparin gtt Code Status: FULL CODE PCP: Lindsay Del Cid Patient seen in collaboration with Dr Puentes. Please see addendum. I spent a total of 60 minutes coordinating, documenting and providing care for this patient excluding time spent in the performance of separately billed services or time spent by another provider/QHP. Admission and Anticipated Discharge Date Admission Date: January 01, 2025 Supervising Physician Co-Signing Physician Notes Attending addendum: The patient was seen and examined in the emergency room She presented with shortness of breath and urinary symptoms noted to have pulmonary embolism and mild CHF the patient on examination and investigation Clinically much better today and denies any significant symptoms On examination Lying in bed without any acute distress and she is morbidly obese Hemodynamically stable blood pressure on the upper side and is afebrile Chestdecreased breath sounds bilaterally with minimal crackles at the bases HeartS1-S2, regular Abdomendistended and bowel sound present Extremities1+ edema bilaterally with chronic skin changes and redness involving the both legs Noted to have wounds to the back of the neck and also right hip area CNSalert, awake and oriented x 3 Her labs, EKG and imaging studies reviewed Noted to have pulmonary embolism with negative scan for DVT and started on intravenous heparin and hypercoagulable studies have been sent Will start on oral Coumadin and that was discussed with the patient in detail Possible UTI and has been getting ceftriaxone Wound care consulted Cardiomyopathy with severe LV dysfunction and ICD placement remains reasonably stable Agree with assessment and plan as outlined above by Isha KERN and take the full responsibility of care in the hospital Dr Amber Puentes Subjective Patient seen laying in bed Reports her SOB and flank/abdominal pain is improved from yesterday Feels very tired Review of Systems Review of Systems: All systems reviewed & are unremarkable except as noted in Subjective Physical Exam Physical Exam: General/Psych: morbidly obese, sitting up in bed, NAD, conversing easily Head: normocephalic, atraumatic Eyes: normal inspection, PERRL, conjunctivae pink ENT: external ear and nose normal, oropharynx normal Neck: normal visual inspection, trachea midline Respiratory: normal respiratory effort, lungs clear to auscultation, no wheeze/rales/rhonchi, no accessory muscle use Cardiovascular: regular rate and rhythm, no murmur/rub/gallop, no JVD Extremities: no cyanosis or clubbing, normal peripheral pulses, venous stasis of BLE with 2+ edema Abdomen/GI: normal bowel sounds, soft, nontender Neurologic/MSK: A+Ox3, motor strength 5/5, moves all extremities Skin: no rashes, normal color, warm and dry; refer to inpatient wound image for images of wounds Results & Data Results & Data Vital Signs (Past 12 Hours) Vital Signs Temp Pulse Pulse Pulse Resp BP Pulse Ox 01/02/25 11:49 36.7 C 84 20 151/54 H 93 01/02/25 09:56 74 22 98 01/02/25 07:45 36.7 C 71 20 159/82 H 95 01/02/25 05:54 75 01/02/25 04:32 36.6 C 77 20 154/82 H 94 O2 Del Method O2 Flow Rate 01/02/25 11:49 Nasal Cannula 3 01/02/25 09:56 3 01/02/25 07:45 Nasal Cannula 3 01/02/25 05:54 01/02/25 04:32 Room Air Laboratory Results Short CBC 01/02/25 Range/Units 03:46 WBC 9.15 (4.8-10.8) K/ul Hgb 13.3 (12.0-16.0) g/dl Hct 40.6 (37.0-47.0) % Plt Count 198 (130-400) K/uL BMP 01/02/25 03:46 Sodium 137 Potassium 3.5 D Chloride 101 Carbon Dioxide 30 BUN 22 Creatinine 0.94 Glucose 153 H Calcium 8.6 I have independently reviewed and interpreted patient's labs including CBC, BMP Medications Administered Current Inpatient Medications Acetaminophen (Acetaminophen 325 Mg Tab) 650 mg PO Q6 PRN PRN Reason: Mild Pain (Scale 1, 2, 3) Stop: 01/31/25 14:19 Last Admin: 01/02/25 09:30 Dose: 650 mg Allopurinol ([facility] 100 Mg Tab) [facility] Stop: 02/01/25 08:59 Last Admin: 01/02/25 09:32 Dose: 100 mg Aspirin (Aspirin 81 Mg Ectab) 81 mg PO DAILY [facility] Stop: 02/01/25 08:59 Last Admin: 01/02/25 09:32 Dose: 81 mg Bupropion HCl (Bupropion Sr 150 Mg Tabcr) [facility] Stop: 02/01/25 08:59 Last Admin: 01/02/25 09:31 Dose: 150 mg Cetirizine HCl (Cetirizine Hcl 10 Mg Tablet) 10 mg PO [facility] Stop: 01/31/25 15:59 Last Admin: 01/02/25 09:32 Dose: 10 mg Clopidogrel Bisulfate (Clopidogrel Bisulfate 75 Mg Tab) 75 mg PO DAILY [facility] Stop: 02/01/25 08:59 Last Admin: 01/02/25 09:31 Dose: 75 mg Dextrose (Dextrose 50% 50 Ml Syringe) 25 - 50 ml IV UD PRN; Protocol PRN Reason: Hypoglycemia Protocol Stop: 01/31/25 15:46 Diclofenac Sodium (Diclofenac Sod 1% Gel 100 Gm Tube) 2 gm EXT Q6H PRN; Protocol PRN Reason: joint pain Stop: 01/31/25 22:44 Last Admin: 01/02/25 09:31 Dose: 2 gm Glucagon (Glucagon For Inj 1 Mg Vial) 1 mg SQ UD PRN; Protocol PRN Reason: Hypoglycemia Protocol Stop: 01/31/25 15:46 Glucose (Glucose 40% Gel 15 Gm Tube) 15 - 30 gm PO UD PRN; Protocol PRN Reason: Hypoglycemia Protocol Stop: 01/31/25 15:46 Glucose (Glucose 10 Tab/Tube) 4 - 8 tab PO UD PRN; Protocol PRN Reason: Hypoglycemia Protocol Stop: 01/31/25 15:46 Heparin Sodium/Dextrose (Heparin 37540 Unit/500 Ml D5w) 25,000 units in 500 mls @ 40 mls/hr IV .[id number] NARA; Protocol Stop: 01/31/25 12:59 Last Titration: 01/02/25 11:35 Dose: 2,000 units/hr, 40 mls/hr Ceftriaxone Sodium (Rocephin) 2,000 mg in 50 mls @ 100 mls/hr IV Q24H [facility] Stop: 01/07/25 12:59 Last Infusion: 01/02/25 14:05 Dose: Infused Insulin Aspart (Insulin Aspart Per Unit Charge) 0 units SC ACHS NARA Stop: 01/31/25 16:29 Last Admin: 01/02/25 13:00 Dose: 11 units Insulin Glargine (Lantus Per Unit Charge) 55 units SC 2100 [facility] Stop: 02/01/25 20:59 Metoprolol Succinate (Metoprolol Succ 25mg Ext Rel Tab) 25 mg PO QAM [facility] Stop: 02/01/25 08:59 Last Admin: 01/02/25 09:32 Dose: 25 mg Miscellaneous (Carbohydrates For Hypoglycemia ) 15 - 30 gm PO UD PRN PRN Reason: Hypoglycemia Protocol Stop: 01/31/25 15:46 Miscellaneous Information (Pharmacy Glycemic Mgmt Consult) 1 each N/A UD PRN PRN Reason: Consult Stop: 01/31/25 15:46 Oxycodone HCl (Oxycodone Hcl Ir 5 Mg Tab (Immediate Release)) 5 mg PO Q6 PRN PRN Reason: Mod-Sev Pain (Scale 4-10) Stop: 01/15/25 14:19 Sacubitril/Valsartan (Valsartan/Sacubitril 103/97mg Tab) 1 tab PO QAM [facility] Stop: 02/01/25 08:59 Last Admin: 01/02/25 09:32 Dose: 1 tab Sertraline HCl (Sertraline Hcl 100 Mg Tablet) 200 mg PO DAILY [facility] Stop: 02/01/25 08:59 Last Admin: 01/02/25 09:31 Dose: 200 mg Torsemide (Torsemide 20 Mg Tab) 20 mg PO QAM [facility] Stop: 02/01/25 08:59 Last Admin: 01/02/25 09:31 Dose: 20 mg Vitamin B Complex (Vitamin B Complex Tab) 1 tab PO DAILY [facility] Stop: 02/01/25 08:59 Last Admin: 01/02/25 09:32 Dose: 1 tab Vitamin D (Cholecalciferol 25 Mcg (1000 Units) Tab) 50 mcg PO DAILY [facility] Stop: 02/01/25 08:59 Last Admin: 01/02/25 09:32 Dose: 50 mcg
--- NOTE | 2025-01-02 14:22 | Pharmacy Report ---
Pharmacy Glycemic Short Note 2 - Date of Service January 02, 2025 - Glycemic Short BSG Results (Last 24 hours): 01/01/25 01/01/25 01/01/25 16:08 18:22 18:25 Glucose POC Glucose 322 H* 385 H* 329 H* 01/01/25 01/02/25 01/02/25 21:16 00:08 03:46 Glucose 153 H POC Glucose 242 H 170 H 01/02/25 01/02/25 01/02/25 04:16 07:58 12:04 Glucose POC Glucose 142 H 173 H 236 H OUTPATIENT ANTIDIABETIC REGIMEN: * Lantus 67 units SQ q HS * glipizide 10mg PO q AM * Jardiance 10mg PO q AM * Trulicity 1.5mg SQ weekly HbA1c 10.45 as of 12/28/24 per provider note. ASSESSMENT: * Amisha is a 59 year old female who was admitted with worsening SOB and was found to have a PE in her RUL. Pharmacy was consulted for glycemic management while she is admitted. * BSG on admit was 441mg/dL on labs. (anion gap and Co2 normal). 8 units iv regular insulin x 1 was given and she was stared on a weight based bolus insulin regimen with a stress of 3. Lantus 50 units x 1 was given at HS last night. * Fasting BSG was 173mg/dL this morning. Lantus was increased to 55 units at HS. Bolus insulin parameters will be continued as ordered last evening. * She is currently on a heparin drip and ceftriaxone for a presumed UTI. PLAN FOR INPATIENT GLYCEMIC CONTROL: * Hold outpatient diabetes medications * Basal insulin * Lantus 55 units SQ HS * Bolus insulin * NovoLog per scale ACHS or Q6hrs while NPO * Goal Range: Low 120 mg/dL - High 160 mg/dL * Correction Factor: 15 mg/dL/unit * Nutritional / Prandial insulin per carb ratio of 1 unit per 6 grams CHO consumed
[2025-01-02] MEDS: FUROSEMIDE 40 MG/4 ML VIAL IV ONE (16:55)
[2025-01-02] MEDS: WARFARIN SOD 10 MG TAB PO ONE (17:11)
[2025-01-02 18:16] LABS: ANTI-Xa, UFH(UnfractionatedHep 0.27 IU/ml (0.3-0.7)
[2025-01-02] MEDS: LANTUS PER UNIT CHARGE SC SCH (21:02)
[2025-01-03 02:05] LABS: ANTI-Xa, UFH(UnfractionatedHep 0.31 IU/ml (0.3-0.7)
[2025-01-03 05:54] LABS: Hematocrit (blood only) 42.0 % (37.0-47.0); Hemoglobin 13.3 g/dl (12.0-16.0); Mean Corpuscular Hemoglobin 25.9 pg (25.0-34.0); Mean Corpuscular Volume 81.7 fL (80.0-100.0); Platelet Count 197 K/uL (130-400); RDW Standard Deviation 49.5 fL (36.4-46.3); Red Blood Count 5.14 M/uL (4.20-5.40); White Blood Count 8.86 K/ul (4.8-10.8)
[2025-01-03 06:09] LABS: Anion Gap 5.0 (3-11); Blood Urea Nitrogen 22.0 mg/dl (6-23); Calcium 8.4 mg/dl (8.6-10.3); Carbon Dioxide 32.0 mmol/L (21-32); Chloride 99.0 mmol/L (98-107); Creatinine Clr Calc Pharmacy 90.6 ml/min; Glucose 184.0 mg/dl (70-99(Fasting)); Magnesium 1.8 mg/dl (1.7-2.4); Potassium 4.1 mmol/L (3.5-5.1); Sodium 136.0 mmol/L (136-145)
[2025-01-03 06:19] LABS: ANTI-Xa, UFH(UnfractionatedHep 0.28 IU/ml (0.3-0.7)
[2025-01-03 07:17] LABS: Hemoglobin A1C 11.7 % (4.5-5.6)
--- NOTE | 2025-01-03 08:26 | Hospitalist Progress Note ---
Date of Service January 03, 2025 Assessment & Plan (1) Pulmonary embolism: (2) CHF exacerbation: (3) UTI (urinary tract infection): (4) Flank pain: (5) HFrEF (heart failure with reduced ejection fraction): (6) Coronary artery disease: (7) Type 2 diabetes mellitus: (8) EDGARD treated with BiPAP: (9) Depression: (10) Gout: Plan 59 year old female with PMH significant for type 2 diabetes with polyneuropathy, dyslipidemia, EDGARD on Bipap, HFrEF, mixed etiology cardiomyopathy with severe LV dysfunction s/p ICD (2018), hypertension, CAD s/p stent (2015), gout, osteoarthritis, depression and anxiety who presented to the ED on 01/01/2025 with worsening SOB and was found to have a PE in her RUL. Pulmonary embolism Patient presented with SOB and was hypoxic 88% on RA in the ED Chest CTA revealed PE in RUL Bilateral venous doppler negative for DVT Hypercoagulable labs pending Discussed case with Dr Vasquez on 01/02 who recommends Coumadin Discussed with patient need for frequent lab monitoring on Coumadin and patient reports that she will be able to be compliant with going to the [facility] as it is very close to where she lives - there is also [employer] mobile lab option at this location if needed Continue Heparin gtt and coumadin INR level tomorrow am UTI UA positive with nitrites and bacteria Urine culture prelim enterobacter cloacae complex IV ceftriaxone switched to cefepime per pharmacy Only sensitive oral agent is levofloxacin Patient will need 5 total days of abx ending on 01/06 Unstageable pressure ulcer of right hip Unstageable pressure ulcer of posterior neck See WOCN assessment and treatment plan from 01/02 Notes hip wound is very painful - PRN tylenol and oxycodone for severe pain HFrEF Cardiomyopathy with severe LV dysfunction s/p ICD Hypertension Venous stasis Follows with [facility] last seen January 2024 Notes noncompliance with home torsemide BNP 230 on admission CXR without evidence of congestion or pulmonary edema Received IV lasix 80mg in ED Continue IV lasix 40mg daily for painful BLE edema 2/2 venous stasis; hold home torsemide Continue Entresto and metoprolol Low sodium diet and 2L fluid restriction Daily weights Accurate I&Os 08/2022 echo from [facility]: LV cavity severely dilated, LV wall thickness not well visualized, EF 25-30%, LV global hypokinesis with akinetic apex; LA cavity mildly dilated; normal RV size and systolic function; valves not well visualized; no significant change compared to prior study in October 202101/02 echo: mild concentric LVH, LVEF 45-50%, LV mild global hypokinesis; RV not well visualized but appears to be normal in size and function; mild mitral annular calcification; grade II diastolic dysfunction; LA, aortic valve, pulmonic valve, tricuspid valve, aortic root not well visualized Flank pain, resolved Patient reported sharp intermittent flank pain on admission No leukocytosis or fevers CT abdomen and pelvis with no acute abnormality Pain resolved CAD s/p stent Dyslipidemia Continue aspirin, plavix, atorvastatin Type 2 diabetes Admitting glucose 441 with no anion gap and negative ketones in urine Uncontrolled sugars with average glucose 297 and medication noncompliance per record review A1C 11.7 Home glipizide, Trulicity, Jardiance on hold while inpt BSG ACHS and SSI while inpt Glycemic pharmacy consult EDGARD Continue bipap at night and with naps Depression/anxiety Continue bupropion and sertraline Gout Discussed with patient that allopurinol and colchicine both increase risk of bleeding in combination with coumadin Patient reports she has never been diagnosed with gout and believes she is on these medications due to a high uric acid level in her blood Patient was agreeable to discontinuing these medications and was informed to monitor for s/s of gout Educated patient on diet modifications to prevent high uric acid level DVT Prophylaxis: Heparin gtt and coumadin Code Status: FULL CODE PCP: Lindsay Del Cid Patient seen in collaboration with Dr Puentes. Please see addendum. I spent a total of 60 minutes coordinating, documenting and providing care for this patient excluding time spent in the performance of separately billed services or time spent by another provider/QHP. Admission and Anticipated Discharge Date Admission Date: January 01, 2025 Supervising Physician Co-Signing Physician Notes Attending addendum: The patient was seen and examined in the emergency room She presented with shortness of breath and urinary symptoms noted to have pulmonary embolism and mild CHF the patient on examination and investigation Clinically much better today and denies any significant symptoms On examination Lying in bed without any acute distress and she is morbidly obese Hemodynamically stable blood pressure on the upper side and is afebrile Chestdecreased breath sounds bilaterally with minimal crackles at the bases HeartS1-S2, regular Abdomendistended and bowel sound present Extremities1+ edema bilaterally with chronic skin changes and redness involving the both legs Noted to have wounds to the back of the neck and also right hip area CNSalert, awake and oriented x 3 Her labs, EKG and imaging studies reviewed Noted to have pulmonary embolism with negative scan for DVT and started on intravenous heparin and hypercoagulable studies have been sent Will start on oral Coumadin and that was discussed with the patient in detail Possible UTI and has been getting UTI Wound care consulted Cardiomyopathy with severe LV dysfunction and ICD placement remains reasonably stable Agree with assessment and plan as outlined above by Isha KERN and take the full responsibility of care in the hospital Dr Amber Puentes 01/03/2025 The patient was seen and examined in the medical telemetry unit. She has been doing much better and the swelling of the legs are improved and denies any shortness of breath at rest. She remains hemodynamically stable and requiring 3 L to maintain saturation. She has been getting intravenous heparin and also Coumadin is started for pulmonary embolism and getting ceftriaxone for Enterobacter cloacae complex UTI Remains medically stable with the assessment and plan as outlined above by CONCHA Doan and take responsibility of care in the hospital. Dr Amber Puentes Subjective Patient seen laying in bed Reports she is very tired and not getting good sleep Notes her breathing and leg swelling is improved Wounds are still painful Denies chest pain, SOB, abdominal pain, N/V/D Review of Systems Review of Systems: All systems reviewed & are unremarkable except as noted in Subjective Physical Exam Physical Exam: General/Psych: morbidly obese, sitting up in bed, NAD, conversing easily Head: normocephalic, atraumatic Eyes: normal inspection, PERRL, conjunctivae pink ENT: external ear and nose normal, oropharynx normal Neck: normal visual inspection, trachea midline Respiratory: normal respiratory effort, lungs clear to auscultation, no wheeze/rales/rhonchi, no accessory muscle use Cardiovascular: regular rate and rhythm, no murmur/rub/gallop, no JVD Extremities: no cyanosis or clubbing, normal peripheral pulses, venous stasis of BLE with 2+ edema Abdomen/GI: normal bowel sounds, soft, nontender Neurologic/MSK: A+Ox3, motor strength 5/5, moves all extremities Skin: no rashes, normal color, warm and dry; refer to inpatient wound image for images of wounds Results & Data Results & Data Vital Signs (Past 12 Hours) Vital Signs Temp Pulse Pulse Resp BP Pulse Ox O2 Del Method 01/03/25 08:22 36.6 C 75 16 149/79 H 90 Room Air 01/03/25 03:09 36.5 C 79 20 102/64 97 Nasal Cannula 01/03/25 02:38 81 28 H 98 01/02/25 23:54 36.5 C 77 20 118/70 95 Nasal Cannula 01/02/25 23:24 BiPAP 01/02/25 22:00 76 O2 Flow Rate 01/03/25 08:22 01/03/25 03:09 3 01/03/25 02:38 3 01/02/25 23:54 3 01/02/25 23:24 01/02/25 22:00 Laboratory Results Short CBC 01/03/25 Range/Units 05:25 WBC 8.86 (4.8-10.8) K/ul Hgb 13.3 (12.0-16.0) g/dl Hct 42.0 (37.0-47.0) % Plt Count 197 (130-400) K/uL BMP 01/03/25 05:25 Sodium 136 Potassium 4.1 Chloride 99 Carbon Dioxide 32 BUN 22 Creatinine 0.96 Glucose 184 H Calcium 8.4 L I have independently reviewed and interpreted patient's labs including CBC and BMP Medications Administered Current Inpatient Medications Acetaminophen (Acetaminophen 325 Mg Tab) 650 mg PO Q6 PRN PRN Reason: Mild Pain (Scale 1, 2, 3) Stop: 01/31/25 14:19 Last Admin: 01/02/25 16:08 Dose: 650 mg Allopurinol (Allopurinol 100 Mg Tab) 100 mg PO QAM [facility] Stop: 02/01/25 08:59 Last Admin: 01/02/25 09:32 Dose: 100 mg Aspirin (Aspirin 81 Mg Ectab) 81 mg PO DAILY [facility] Stop: 02/01/25 08:59 Last Admin: 01/02/25 09:32 Dose: 81 mg Bupropion HCl (Bupropion Sr 150 Mg Tabcr) 150 mg PO QAM [facility] Stop: 02/01/25 08:59 Last Admin: 01/02/25 09:31 Dose: 150 mg Cetirizine HCl (Cetirizine Hcl 10 Mg Tablet) 10 mg PO QAM [facility] Stop: 01/31/25 15:59 Last Admin: 01/02/25 09:32 Dose: 10 mg Clopidogrel Bisulfate (Clopidogrel Bisulfate 75 Mg Tab) 75 mg PO DAILY [facility] Stop: 02/01/25 08:59 Last Admin: 01/02/25 09:31 Dose: 75 mg Dextrose (Dextrose 50% 50 Ml Syringe) 25 - 50 ml IV UD PRN; Protocol PRN Reason: Hypoglycemia Protocol Stop: 01/31/25 15:46 Diclofenac Sodium (Diclofenac Sod 1% Gel 100 Gm Tube) 2 gm EXT Q6H PRN; Protocol PRN Reason: joint pain Stop: 01/31/25 22:44 Last Admin: 01/02/25 21:01 Dose: 2 gm Furosemide (Furosemide 40 Mg/4 Ml Vial) [facility] Stop: 02/02/25 08:59 Glucagon (Glucagon For Inj 1 Mg Vial) 1 mg SQ UD PRN; Protocol PRN Reason: Hypoglycemia Protocol Stop: 01/31/25 15:46 Glucose (Glucose 40% Gel 15 Gm Tube) 15 - 30 gm PO UD PRN; Protocol PRN Reason: Hypoglycemia Protocol Stop: 01/31/25 15:46 Glucose (Glucose 10 Tab/Tube) 4 - 8 tab PO UD PRN; Protocol PRN Reason: Hypoglycemia Protocol Stop: 01/31/25 15:46 Heparin Sodium/Dextrose (Heparin 69820 Unit/500 Ml D5w) 25,000 units in 500 mls @ 42 mls/hr IV .[id number] NARA; Protocol Stop: 01/31/25 12:59 Last Titration: 01/03/25 06:57 Dose: 2,200 units/hr, 44 mls/hr Ceftriaxone Sodium (Rocephin) 2,000 mg in 50 mls @ 100 mls/hr IV Q24H [facility] Stop: 01/07/25 12:59 Last Infusion: 01/02/25 14:05 Dose: Infused Insulin Aspart (Insulin Aspart Per Unit Charge) 0 units SC ACHS [facility] Stop: 01/31/25 16:29 Last Admin: 01/02/25 21:02 Dose: 2 units Insulin Glargine (Lantus Per Unit Charge) 55 units SC 2100 [facility] Stop: 02/01/25 20:59 Last Admin: 01/02/25 21:02 Dose: 55 units Insulin Glargine (Lantus Per Unit Charge) 10 units SC ONE ONE Stop: 01/03/25 09:01 Metoprolol Succinate (Metoprolol Succ 25mg Ext Rel Tab) 25 mg PO QAM [facility] Stop: 02/01/25 08:59 Last Admin: 01/02/25 09:32 Dose: 25 mg Miscellaneous (Carbohydrates For Hypoglycemia ) 15 - 30 gm PO UD PRN PRN Reason: Hypoglycemia Protocol Stop: 01/31/25 15:46 Miscellaneous Information (Pharmacy Glycemic Mgmt Consult) 1 each N/A UD PRN PRN Reason: Consult Stop: 01/31/25 15:46 Oxycodone HCl (Oxycodone Hcl Ir 5 Mg Tab (Immediate Release)) 5 mg PO Q6 PRN PRN Reason: Mod-Sev Pain (Scale 4-10) Stop: 01/15/25 14:19 Sacubitril/Valsartan (Valsartan/Sacubitril 103/97mg Tab) [facility] Stop: 02/01/25 08:59 Last Admin: 01/02/25 09:32 Dose: 1 tab Sertraline HCl (Sertraline Hcl 100 Mg Tablet) 200 mg PO DAILY [facility] Stop: 02/01/25 08:59 Last Admin: 01/02/25 09:31 Dose: 200 mg Torsemide (Torsemide 20 Mg Tab) 20 mg PO QAM [facility] Stop: 02/01/25 08:59 Last Admin: 01/02/25 09:31 Dose: 20 mg Vitamin B Complex (Vitamin B Complex Tab) 1 tab PO DAILY [facility] Stop: 02/01/25 08:59 Last Admin: 01/02/25 09:32 Dose: 1 tab Vitamin D (Cholecalciferol 25 Mcg (1000 Units) Tab) 50 mcg PO DAILY [facility] Stop: 02/01/25 08:59 Last Admin: 01/02/25 09:32 Dose: 50 mcg Warfarin Sodium (Warfarin Sod 5 Mg Tab) 5 mg PO DAILY@1600 [facility] Stop: 02/02/25 15:59
[2025-01-03] MEDS: FUROSEMIDE 40 MG/4 ML VIAL IV SCH (08:39)
[2025-01-03] MEDS: LANTUS PER UNIT CHARGE SC ONE (08:47)
--- NOTE | 2025-01-03 09:02 | Pharmacy Report ---
Pharmacy Glycemic Short Note 2 - Date of Service January 03, 2025 - Glycemic Short BSG Results (Last 24 hours): 01/02/25 01/02/25 01/02/25 12:04 17:11 20:33 Glucose POC Glucose 236 H 248 H 186 H 01/03/25 01/03/25 05:25 08:06 Glucose 184 H POC Glucose 209 H OUTPATIENT ANTIDIABETIC REGIMEN: * Lantus 67 units SQ q HS * glipizide 10mg PO q AM * Jardiance 10mg PO q AM * Trulicity 1.5mg SQ weekly HbA1c 10.45 as of 12/28/24 per provider note. ASSESSMENT: 01/03 * Amisha received 92 units of insulin yesterday (55 units Lantus + 37 units Novolog) - all BSGs above goal range * Fasting BSG continues to trend upwards. Additional 10 units of Lantus ordered for this morning to make total of 65 units today. Will likely be able to resume once daily dosing at bedtime tomorrow. * Will further tighten carb coverage today. 01/02 * Amisha is a 59 year old female who was admitted with worsening SOB and was found to have a PE in her RUL. Pharmacy was consulted for glycemic management while she is admitted. * BSG on admit was 441mg/dL on labs. (anion gap and Co2 normal). 8 units iv regular insulin x 1 was given and she was stared on a weight based bolus insulin regimen with a stress of 3. Lantus 50 units x 1 was given at HS last night. * Fasting BSG was 173mg/dL this morning. Lantus was increased to 55 units at HS. Bolus insulin parameters will be continued as ordered last evening. * She is currently on a heparin drip and ceftriaxone for a presumed UTI. PLAN FOR INPATIENT GLYCEMIC CONTROL: * Hold outpatient diabetes medications * Basal insulin * Lantus 10 units SQ this morning + 55 units SQ HS * Bolus insulin * NovoLog per scale ACHS or Q6hrs while NPO * Goal Range: Low 120 mg/dL - High 160 mg/dL * Correction Factor: 15 mg/dL/unit * Nutritional / Prandial insulin per carb ratio of 1 unit per 4 grams CHO consumed
[2025-01-03] MEDS: CEFEPIME 1000MG 1,000 MG/10 ML SYR IV SCH (11:48)
[2025-01-03 12:59] LABS: ANTI-Xa, UFH(UnfractionatedHep 0.33 IU/ml (0.3-0.7)
[2025-01-03] MEDS: WARFARIN SOD 5 MG TAB PO SCH (16:26)
[2025-01-04 06:53] LABS: Hematocrit (blood only) 42.6 % (37.0-47.0); Hemoglobin 13.7 g/dl (12.0-16.0); Mean Corpuscular Hemoglobin 26.2 pg (25.0-34.0); Mean Corpuscular Volume 81.6 fL (80.0-100.0); Platelet Count 208 K/uL (130-400); RDW Standard Deviation 49.1 fL (36.4-46.3); Red Blood Count 5.22 M/uL (4.20-5.40); White Blood Count 7.63 K/ul (4.8-10.8)
--- NOTE | 2025-01-04 07:12 | Hospitalist Progress Note ---
Date of Service January 04, 2025 Assessment & Plan (1) Pulmonary embolism: (2) CHF exacerbation: (3) UTI (urinary tract infection): (4) Flank pain: (5) HFrEF (heart failure with reduced ejection fraction): (6) Coronary artery disease: (7) Type 2 diabetes mellitus: (8) EDGARD treated with BiPAP: (9) Depression: (10) Gout: Plan 59 year old female with PMH significant for type 2 diabetes with polyneuropathy, dyslipidemia, EDGARD on Bipap, HFrEF, mixed etiology cardiomyopathy with severe LV dysfunction s/p ICD (2018), hypertension, CAD s/p stent (2015), gout, osteoarthritis, depression and anxiety who presented to the ED on 01/01/2025 with worsening SOB and was found to have a PE in her RUL. Pulmonary embolism Pt presents with SOB and was hypoxic 88% on RA in the ED Chest CTA revealed PE in RUL Bilateral venous Doppler negative for DVT Coumadin started on 01/02 INR 1.7 today; recheck in a.m. and continue with heparin drip bridging therapy Discussed need for frequent lab monitoring on Coumadin and reportedly she will be compliant with going to [facility] as it is very close to where she lives - there is also [facility] mobile lab option if needed lengthy conversation held regarding importance of therapeutic INR levels and clot risk UTI UA positive with nitrites and bacteria Urine culture prelim enterobacter cloacae complex IV ceftriaxone switched to cefepime per pharmacy Only sensitive oral agent is levofloxacin Patient will need 5 total days of abx ending on 01/06 Intermittent dizziness: Appears to be orthostasis; BPs have ranged low 100's-160's Obtain Ortho BP Unstageable pressure ulcer of right hip Unstageable pressure ulcer of posterior neck See WOCN assessment and treatment plan from 01/02 Notes hip wound is very painful - PRN tylenol and oxycodone for severe pain NO doses of Tylenol or Oxy since 01/02; Will DC Oxy today. HFrEF Cardiomyopathy with severe LV dysfunction s/p ICD Hypertension Venous stasis Follows with [facility] Cardiology last seen January 2024 Notes noncompliance with home torsemide BNP 230 on admission CXR without evidence of congestion or pulmonary edema; no adventitious lung sounds Received IV lasix 80mg in ED Continue IV lasix 40mg daily for painful BLE edema 2/2 venous stasis; hold home torsemide Continue Entresto and metoprolol Low sodium diet and 2L fluid restriction Daily weights , Accurate I&Os 08/2022 echo from [facility]: LV cavity severely dilated, LV wall thickness not well visualized, EF 25-30%, LV global hypokinesis with akinetic apex; LA cavity mildly dilated; normal RV size and systolic function; valves not well visualized; no significant change compared to prior study in October 202101/02 echo: mild concentric LVH, LVEF 45-50%, LV mild global hypokinesis; RV not well visualized but appears to be normal in size and function; mild mitral annular calcification; grade II diastolic dysfunction; LA, aortic valve, pulmonic valve, tricuspid valve, aortic root not well visualized CAD s/p stent Dyslipidemia Continue aspirin, plavix, atorvastatin Type 2 diabetes Admitting glucose 441 with no anion gap and negative ketones in urine Uncontrolled sugars with average glucose 297 and medication noncompliance per record review A1C 11.7 Home glipizide, Trulicity, Jardiance on hold while inpt BSG ACHS and SSI while inpt Glycemic pharmacy consult Will add CDE consult while here. EDGARD Continue bipap at night and with naps Depression/anxiety Continue bupropion and sertraline Gout allopurinol and colchicine both increase risk of bleeding in combination with coumadin No formal gout dx; agreeable to DC these medications @ discharge Educated patient on diet modifications to prevent high uric acid level Flank pain, resolved Patient reported sharp intermittent flank pain on admission No leukocytosis or fevers CTAP negative Disposition: DVT Prophylaxis: Heparin gtt and coumadin Code Status: FULL CODE PCP: Lindsay Del Cid I spent a total of 56 minutes coordinating, documenting and providing care for this patient excluding time spent in the performance of separately billed services or time spent by another provider/QHP. Admission and Anticipated Discharge Date Admission Date: January 01, 2025 Supervising Physician Co-Signing Physician Notes Attending addendum: The patient was seen and examined in the emergency room She presented with shortness of breath and urinary symptoms noted to have pulmonary embolism and mild CHF the patient on examination and investigation Clinically much better today and denies any significant symptoms On examination Lying in bed without any acute distress and she is morbidly obese Hemodynamically stable blood pressure on the upper side and is afebrile Chestdecreased breath sounds bilaterally with minimal crackles at the bases HeartS1-S2, regular Abdomendistended and bowel sound present Extremities1+ edema bilaterally with chronic skin changes and redness involving the both legs Noted to have wounds to the back of the neck and also right hip area CNSalert, awake and oriented x 3 Her labs, EKG and imaging studies reviewed Noted to have pulmonary embolism with negative scan for DVT and started on intravenous heparin and hypercoagulable studies have been sent Will start on oral Coumadin and that was discussed with the patient in detail Possible UTI and has been getting UTI Wound care consulted Cardiomyopathy with severe LV dysfunction and ICD placement remains reasonably stable Agree with assessment and plan as outlined above by Isha KERN and take the full responsibility of care in the hospital Dr Amber Puentes 01/03/2025 The patient was seen and examined in the medical telemetry unit. She has been doing much better and the swelling of the legs are improved and denies any shortness of breath at rest. She remains hemodynamically stable and requiring 3 L to maintain saturation. She has been getting intravenous heparin and also Coumadin is started for pulmonary embolism and getting ceftriaxone for Enterobacter cloacae complex UTI Remains medically stable with the assessment and plan as outlined above by CONCHA Doan and take responsibility of care in the hospital. Dr Amber Puentes 01/04/2025 The patient was seen and examined in medical telemetry unit She has been feeling much better and denies any significant symptoms She remains hemodynamically stable and saturating normally on room air Her INR is not yet therapeutic and will continue IV heparin and oral Coumadin Getting antibiotic for UTI and will be continued Nocturnal Pulse Oxymetry did not show any need for Oxygen Agree with assessment and plan as outlined above by Jaylene KERN and take the full responsibility of care in the hospital Dr Amber Puentes Subjective Pt seen while she was sitting in her bedside hospital chair; finishing up breakfast. She had a better night than last night and was able to sleep well. Patient denies headache, chest pain, shortness of breath, abdominal pain or tenderness, dysphagia, spontaneous bleeding. No overnight arrhythmias noted by radiation control technician. LBM Sunday 12/31 Considerable amount of time discussing bridging anticoagulation therapy and INR level education Patient does report that she had intermittent dizziness with getting out of bed; blood pressures reviewed as outlined in A/P Please see A/P for further details. Review of Systems Review of Systems: Neuro: (-) Falls, trauma, slurred speech HEENT: (-) LI, dizziness, dysphagia, visual or auditory changes CV: (-) CP, palpitations, swelling Resp: (-) SOB GI: (-) appetite changes, N/V/D, bowel changes : (-) urinary changes Skin: (-) rashes Psych: (-) anxiety, depression Physical Exam Physical Exam: Neuro: AAOx4, PERRLA, no aphagia, memory changes, CNII-XII grossly intact HEENT: head normocephalic, moist mucus membranes CV: S1/S2, (-) M/G/R, (-) edema, cap refill < 3 seconds Resp: Lungs CTA in all wasserman. On RA GI: Abdomen large, S/NT/ND, Ax4 bowel sounds, (-) CVA tenderness Musculoskeletal: 5/5 B/L UE strength, 5/5 B/L LE strength. No gait disturbance Skin: (-) rashes , (-) erythema. Psych: euthymic mood Results & Data Results & Data Vital Signs (Past 12 Hours) Vital Signs Temp Pulse Pulse Pulse Resp BP BP 01/04/25 02:41 70 01/04/25 02:14 72 16 113/67 01/04/25 00:03 70 01/03/25 23:07 75 01/03/25 22:39 36.6 C 75 18 120/64 01/03/25 22:04 78 01/03/25 19:31 01/03/25 19:17 37.1 C 76 18 137/72 Pulse Ox Pulse Ox O2 Del Method O2 Del Method O2 Flow Rate FiO2 01/04/25 02:41 Room Air, CPAP 92 01/04/25 02:14 95 CPAP 01/04/25 00:03 93 Room Air, CPAP 01/03/25 23:07 94 Room Air, CPAP 01/03/25 22:39 91 Room Air 01/03/25 22:04 01/03/25 19:31 Nasal Cannula, BiPAP 3 01/03/25 19:17 97 Nasal Cannula 3 Laboratory Results Short CBC 01/04/25 Range/Units 05:55 WBC 7.63 (4.8-10.8) K/ul Hgb 13.7 (12.0-16.0) g/dl Hct 42.6 (37.0-47.0) % Plt Count 208 (130-400) K/uL [facility] 01/04/25 05:55 Sodium 137 Potassium 3.7 Chloride 99 Carbon Dioxide 30 BUN 24 H Creatinine 0.91 Glucose 159 H Calcium 8.5 L
[2025-01-04 07:27] LABS: Anion Gap 8.0 (3-11); Blood Urea Nitrogen 24.0 mg/dl (6-23); Calcium 8.5 mg/dl (8.6-10.3); Carbon Dioxide 30.0 mmol/L (21-32); Chloride 99.0 mmol/L (98-107); Creatinine Clr Calc Pharmacy 95.6 ml/min; Glucose 159.0 mg/dl (70-99(Fasting)); Potassium 3.7 mmol/L (3.5-5.1); Sodium 137.0 mmol/L (136-145)
[2025-01-04 07:42] LABS: ANTI-Xa, UFH(UnfractionatedHep 0.30 IU/ml (0.3-0.7)
[2025-01-04 07:44] LABS: INR 1.7 (0.9-1.1); Prothrombin Time 17.2 Seconds (9.0-12.0)
[2025-01-04] MEDS: LANTUS PER UNIT CHARGE SC ONE (09:30)
[2025-01-04] MEDS ORDERED: MAGNESIUM HYDROXIDE SUSP 30 ML UDC PO PRN (10:14)
--- NOTE | 2025-01-04 10:57 | Pharmacy Report ---
Pharmacy Glycemic Short Note 2 - Date of Service January 04, 2025 - Glycemic Short BSG Results (Last 24 hours): 01/03/25 01/03/25 01/03/25 11:52 16:49 20:12 Glucose POC Glucose 229 H 212 H 234 H 01/04/25 01/04/25 05:55 07:57 Glucose 159 H POC Glucose 171 H OUTPATIENT ANTIDIABETIC REGIMEN: * Lantus 67 units SQ q HS * glipizide 10mg PO q AM * Jardiance 10mg PO q AM * Trulicity 1.5mg SQ weekly HbA1c 10.45 as of 12/28/24 per provider note. ASSESSMENT: 01/04 * Amisha received 117 units of insulin yesterday (65 units of Lantus + 52 units of Novolog) with minimal improvement in glycemic control despite ~25% increase in insulin. * Fasting BSG of 171 mg/dL. Remains above goal, however, trending downward. Will continue to titrate basal insulin. * Persistent post prandial BSG elevation yesterday (all values reported to be > 200 mg/dL). Will further tighten Novolog parameters. 01/03 * Amisha received 92 units of insulin yesterday (55 units Lantus + 37 units Novolog) - all BSGs above goal range * Fasting BSG continues to trend upwards. Additional 10 units of Lantus ordered for this morning to make total of 65 units today. Will likely be able to resume once daily dosing at bedtime tomorrow. * Will further tighten carb coverage today. 01/02 * Amisha is a 59 year old female who was admitted with worsening SOB and was found to have a PE in her RUL. Pharmacy was consulted for glycemic management while she is admitted. * BSG on admit was 441mg/dL on labs. (anion gap and Co2 normal). 8 units iv regular insulin x 1 was given and she was stared on a weight based bolus insulin regimen with a stress of 3. Lantus 50 units x 1 was given at HS last night. * Fasting BSG was 173mg/dL this morning. Lantus was increased to 55 units at H S. Bolus insulin parameters will be continued as ordered last evening. * She is currently on a heparin drip and ceftriaxone for a presumed UTI. PLAN FOR INPATIENT GLYCEMIC CONTROL: * Hold outpatient diabetes medications * Basal insulin * Lantus 5 units SQ this AM x 1 * Lantus 65 units SQ HS * Bolus insulin * NovoLog per scale ACHS or Q6hrs while NPO * Goal Range: Low 120 mg/dL - High 160 mg/dL * Correction Factor: 10 mg/dL/unit * Nutritional / Prandial insulin per carb ratio of 1 unit per 3 grams CHO consumed
[2025-01-04] MEDS: LANTUS PER UNIT CHARGE SC SCH (21:13)
--- NOTE | 2025-01-05 07:01 | Hospitalist Progress Note ---
Date of Service January 05, 2025 Assessment & Plan (1) Pulmonary embolism: (2) CHF exacerbation: (3) UTI (urinary tract infection): (4) Flank pain: (5) HFrEF (heart failure with reduced ejection fraction): (6) Coronary artery disease: (7) Type 2 diabetes mellitus: (8) EDGARD treated with BiPAP: (9) Depression: (10) Gout: Plan 59 year old female with PMH significant for type 2 diabetes with polyneuropathy, dyslipidemia, EDGARD on Bipap, HFrEF, mixed etiology cardiomyopathy with severe LV dysfunction s/p ICD (2018), hypertension, CAD s/p stent (2015), gout, osteoarthritis, depression and anxiety who presented to the ED on 01/01/2025 with worsening SOB and was found to have a PE in her RUL. Pulmonary embolism Pt presents with SOB and was hypoxic 88% on RA in the ED Chest CTA revealed PE in RUL Bilateral venous Doppler negative for DVT Coumadin started on 01/02 INR 2.1 today; recheck in a.m.. Continue Heparin drip; discontinue on 01/06 Discussed need for frequent lab monitoring on Coumadin and reportedly she will be compliant with going to [facility] as it is very close to where she lives - there is also [facility] mobile lab option if needed lengthy conversation held regarding importance of therapeutic INR levels and clot risk. She was able to recall and verbalize what therapeutic levels are for her. UTI UA positive with nitrites and bacteria Urine culture prelim enterobacter cloacae complex IV ceftriaxone switched to cefepime per pharmacy Only sensitive oral agent is levofloxacin Patient will need 5 total days of abx ending on 01/06 Unstageable pressure ulcer of right hip Unstageable pressure ulcer of posterior neck See WOCN assessment and treatment plan from 01/02 Notes hip wound is very painful - PRN tylenol and oxycodone for severe pain NO doses of Tylenol or Oxy since 01/02; oxy has been DC'd HFrEF Cardiomyopathy with severe LV dysfunction s/p ICD Hypertension Venous stasis Follows with [facility] Cardiology last seen January 2024 Notes noncompliance with home torsemide BNP 230 on admission CXR without evidence of congestion or pulmonary edema; no adventitious lung sounds Received IV lasix 80mg in ED Continue IV lasix 40mg daily for painful BLE edema 2/2 venous stasis; hold home torsemide Continue Entresto and metoprolol Low sodium diet and 2L fluid restriction Daily weights , Accurate I&Os 08/2022 echo from [facility]: LV cavity severely dilated, LV wall thickness not well visualized, EF 25-30%, LV global hypokinesis with akinetic apex; LA cavity mildly dilated; normal RV size and systolic function; valves not well visualized; no significant change compared to prior study in October 202101/02 echo: mild concentric LVH, LVEF 45-50%, LV mild global hypokinesis; RV not well visualized but appears to be normal in size and function; mild mitral annular calcification; grade II diastolic dysfunction; LA, aortic valve, pulmonic valve, tricuspid valve, aortic root not well visualized CAD s/p stent Dyslipidemia Continue aspirin, plavix, atorvastatin Type 2 diabetes Admitting glucose 441 with no anion gap and negative ketones in urine Uncontrolled sugars with average glucose 297 and medication noncompliance per record review A1C 11.7 Home glipizide, Trulicity, Jardiance on hold while inpt BSG ACHS and SSI while inpt Glycemic pharmacy consult; Will add CDE consult while here. EDGARD Continue bipap at night and with naps Depression/anxiety Continue bupropion and sertraline Gout allopurinol and colchicine both increase risk of bleeding in combination with coumadin No formal gout dx; agreeable to DC these medications @ discharge Educated patient on diet modifications to prevent high uric acid level Flank pain, resolved Patient reported sharp intermittent flank pain on admission No leukocytosis or fevers CTAP negative Intermittent dizziness: Appears to be orthostasis; BPs have ranged low 100's-160's No orthostasis noted and dizziness improved. Disposition: DVT Prophylaxis: Heparin gtt and coumadin Code Status: FULL CODE PCP: Lindsay Del Cid I spent a total of 54 minutes coordinating, documenting and providing care for this patient excluding time spent in the performance of separately billed services or time spent by another provider/QHP. Admission and Anticipated Discharge Date Admission Date: January 01, 2025 Supervising Physician Co-Signing Physician Notes Attending addendum: The patient was seen and examined in the emergency room She presented with shortness of breath and urinary symptoms noted to have pulmonary embolism and mild CHF the patient on examination and investigation Clinically much better today and denies any significant symptoms On examination Lying in bed without any acute distress and she is morbidly obese Hemodynamically stable blood pressure on the upper side and is afebrile Chestdecreased breath sounds bilaterally with minimal crackles at the bases HeartS1-S2, regular Abdomendistended and bowel sound present Extremities1+ edema bilaterally with chronic skin changes and redness involving the both legs Noted to have wounds to the back of the neck and also right hip area CNSalert, awake and oriented x 3 Her labs, EKG and imaging studies reviewed Noted to have pulmonary embolism with negative scan for DVT and started on intravenous heparin and hypercoagulable studies have been sent Will start on oral Coumadin and that was discussed with the patient in detail Possible UTI and has been getting UTI Wound care consulted Cardiomyopathy with severe LV dysfunction and ICD placement remains reasonably stable Agree with assessment and plan as outlined above by Isha KERN and take the full responsibility of care in the hospital Dr Amber Puentes 01/03/2025 The patient was seen and examined in the medical telemetry unit. She has been doing much better and the swelling of the legs are improved and denies any shortness of breath at rest. She remains hemodynamically stable and requiring 3 L to maintain saturation. She has been getting intravenous heparin and also Coumadin is started for pulmonary embolism and getting ceftriaxone for Enterobacter cloacae complex UTI Remains medically stable with the assessment and plan as outlined above by CONCHA Doan and take responsibility of care in the hospital. Dr Amber Puentes 01/04/2025 The patient was seen and examined in medical telemetry unit She has been feeling much better and denies any significant symptoms She remains hemodynamically stable and saturating normally on room air Her INR is not yet therapeutic and will continue IV heparin and oral Coumadin Getting antibiotic for UTI and will be continued Nocturnal Pulse Oxymetry did not show any need for Oxygen Agree with assessment and plan as outlined above by Jaylene KERN and take the full responsibility of care in the hospital Dr Amber Puentes 01/05/2025 The patient was seen and examined in medical telemetry unit He complains to have discomfort secondary to his electrodes 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 She has complaints of not sleeping well due to her bed and positioning; otherwise no complaints Patient denies headache, chest pain, shortness of breath, abdominal pain or tenderness, dysphagia, spontaneous bleeding. No overnight arrhythmias noted by child monitor. Considerable amount of time discussing bridging anticoagulation therapy and INR level education. She was able to recall what therapeutic level she should be at (2-3) Please see A/P for further details. Review of Systems Review of Systems: Neuro: (-) Falls, trauma, slurred speech HEENT: (-) LI, dizziness, dysphagia, visual or auditory changes CV: (-) CP, palpitations, swelling Resp: (-) SOB GI: (-) appetite changes, N/V/D, bowel changes : (-) urinary changes Skin: (-) rashes Psych: (-) anxiety, depression Physical Exam Physical Exam: Neuro: AAOx4, PERRLA, no aphagia, memory changes, CNII-XII grossly intact HEENT: head normocephalic, moist mucus membranes CV: S1/S2, (-) M/G/R, (-) edema, cap refill < 3 seconds Resp: Lungs CTA in all wasserman. On RA GI: Abdomen large, S/NT/ND, Ax4 bowel sounds, (-) CVA tenderness Musculoskeletal: 5/5 B/L UE strength, 5/5 B/L LE strength. Uses a walker at times to ambulate Skin: (-) rashes , (-) erythema. B/L LE lymphedema; improved from baseline Psych: euthymic mood Results & Data Results & Data Vital Signs (Past 12 Hours) Vital Signs Temp Pulse Pulse Resp BP Pulse Ox O2 Del Method 01/05/25 03:43 36.6 C 72 18 114/74 95 Nasal Cannula 01/05/25 02:34 76 01/04/25 23:24 36.8 C 77 18 125/72 96 Nasal Cannula 01/04/25 19:41 Nasal Cannula 01/04/25 19:24 36.6 C 77 18 116/76 96 Nasal Cannula O2 Flow Rate 01/05/25 03:43 3 01/05/25 02:34 01/04/25 23:24 3 01/04/25 19:41 3 01/04/25 19:24 3 Laboratory Results Short CBC 01/05/25 Range/Units 06:31 WBC 7.84 (4.8-10.8) K/ul Hgb 13.7 (12.0-16.0) g/dl Hct 41.5 (37.0-47.0) % Plt Count 198 (130-400) K/uL [facility] 01/05/25 06:31 Sodium 137 Potassium 3.5 Chloride 98 Carbon Dioxide 33 H BUN 25 H Creatinine 0.97 Glucose 146 H Calcium 8.5 L
[2025-01-05 07:23] LABS: ANTI-Xa, UFH(UnfractionatedHep 0.27 IU/ml (0.3-0.7)
[2025-01-05 07:25] LABS: INR 2.1 (0.9-1.1); Prothrombin Time 21.8 Seconds (9.0-12.0)
[2025-01-05 07:28] LABS: Hematocrit (blood only) 41.5 % (37.0-47.0); Hemoglobin 13.7 g/dl (12.0-16.0); Mean Corpuscular Hemoglobin 26.7 pg (25.0-34.0); Mean Corpuscular Volume 80.7 fL (80.0-100.0); Platelet Count 198 K/uL (130-400); RDW Standard Deviation 49.1 fL (36.4-46.3); Red Blood Count 5.14 M/uL (4.20-5.40); White Blood Count 7.84 K/ul (4.8-10.8)
[2025-01-05 08:00] LABS: Anion Gap 6.0 (3-11); Blood Urea Nitrogen 25.0 mg/dl (6-23); Calcium 8.5 mg/dl (8.6-10.3); Carbon Dioxide 33.0 mmol/L (21-32); Chloride 98.0 mmol/L (98-107); Creatinine Clr Calc Pharmacy 88.8 ml/min; Glucose 146.0 mg/dl (70-99(Fasting)); Potassium 3.5 mmol/L (3.5-5.1); Sodium 137.0 mmol/L (136-145)
[2025-01-05 21:37] LABS: ANTI-Xa, UFH(UnfractionatedHep 0.26 IU/ml (0.3-0.7)
[2025-01-06 05:47] LABS: ANTI-Xa, UFH(UnfractionatedHep 0.25 IU/ml (0.3-0.7)
[2025-01-06 05:47] LABS: Hematocrit (blood only) 46.9 % (37.0-47.0); Hemoglobin 14.6 g/dl (12.0-16.0); Mean Corpuscular Hemoglobin 25.5 pg (25.0-34.0); Mean Corpuscular Volume 82.0 fL (80.0-100.0); Platelet Count 226 K/uL (130-400); RDW Standard Deviation 49.7 fL (36.4-46.3); Red Blood Count 5.72 M/uL (4.20-5.40); White Blood Count 9.37 K/ul (4.8-10.8)
[2025-01-06 05:56] LABS: INR 2.6 (0.9-1.1); Prothrombin Time 25.9 Seconds (9.0-12.0)
[2025-01-06 06:08] LABS: Anion Gap 7.0 (3-11); Blood Urea Nitrogen 32.0 mg/dl (6-23); Calcium 9.1 mg/dl (8.6-10.3); Carbon Dioxide 32.0 mmol/L (21-32); Chloride 95.0 mmol/L (98-107); Creatinine Clr Calc Pharmacy 75.5 ml/min; Glucose 173.0 mg/dl (70-99(Fasting)); Potassium 3.7 mmol/L (3.5-5.1); Sodium 134.0 mmol/L (136-145)
[2025-01-06 08:41] LABS: ANTI-Xa, UFH(UnfractionatedHep 0.26 IU/ml (0.3-0.7)
--- NOTE | 2025-01-06 10:15 | Hospitalist Progress Note ---
Date of Service January 06, 2025 Assessment & Plan (1) Pulmonary embolism: (2) CHF exacerbation: (3) UTI (urinary tract infection): (4) Flank pain: (5) HFrEF (heart failure with reduced ejection fraction): (6) Coronary artery disease: (7) Type 2 diabetes mellitus: (8) EDGARD treated with BiPAP: (9) Depression: (10) Gout: Plan 59 year old female with PMH significant for type 2 diabetes with polyneuropathy, dyslipidemia, EDGARD on Bipap, HFrEF, mixed etiology cardiomyopathy with severe LV dysfunction s/p ICD (2018), hypertension, CAD s/p stent (2015), gout, osteoarthritis, depression and anxiety who presented to the ED on 01/01/2025 with worsening SOB and was found to have a PE in her RUL. 08/2022 echo from [facility]: LV cavity severely dilated, LV wall thickness not well visualized, EF 25-30%, LV global hypokinesis with akinetic apex; LA cavity mildly dilated; normal RV size and systolic function; valves not well visualized; no significant change compared to prior study in October 202101/02 echo: mild concentric LVH, LVEF 45-50%, LV mild global hypokinesis; RV not well visualized but appears to be normal in size and function; mild mitral annular calcification; grade II diastolic dysfunction; LA, aortic valve, pulmonic valve, tricuspid valve, aortic root not well visualized Pulmonary embolism Pt presented with SOB and was hypoxic 88% on RA Chest CTA revealed PE in RUL B/L venous Doppler (-) for DVT Coumadin started on 01/02 INR 2.6 today; recheck in a.m.. Heparin gtt DC on 01/06 Discussed need for frequent lab monitoring on Coumadin and reportedly she will be compliant with going to [facility] as it is very close to where she lives - there is also [facility] mobile lab option if needed. She ca n ride her scooter down and if inclament weather, can have transport pick her up lengthy conversation held regarding importance of therapeutic INR levels and clot risk. She was able to recall and verbalize what therapeutic levels are for her. UTI UA positive with nitrites and bacteria Urine cx prelim enterobacter cloacae complex IV ceftriaxone switched to cefepime per pharmacy Only sensitive oral agent is levofloxacin Patient will need 5 total days of abx ending on 01/07 HFrEF Cardiomyopathy with severe LV dysfunction s/p ICD Hypertension Venous stasis Follows with [facility] Cardiology last seen January 2024 Notes noncompliance with home torsemide BNP 230 on admission CXR without evidence of congestion or pulmonary edema; no adventitious lung sounds Continue IV lasix 40mg daily for painful BLE edema 2/2 venous stasis; hold home torsemide Continue Entresto and metoprolol Low Na+ diet and 2L fluid restriction Daily weights, Accurate I&Os Unstageable pressure ulcer of right hip Unstageable pressure ulcer of posterior neck See WOCN assessment and treatment plan from 01/02 Notes hip wound is very painful - PRN tylenol and oxycodone for severe pain No doses of Tylenol or Oxy since 01/02; oxy has been DC'd CAD s/p stent Dyslipidemia Continue aspirin, plavix, atorvastatin Type 2 diabetes Admitting glucose 441 with no anion gap and negative ketones in urine Uncontrolled sugars with average glucose 297 and medication noncompliance per record review A1C 11.7 Home glipizide, Trulicity, Jardiance on hold while inpt BSG ACHS and SSI while inpt Glycemic pharmacy consult; Will add CDE consult while here. EDGARD Continue bipap at night and with naps Depression/anxiety Continue bupropion and sertraline Gout allopurinol and colchicine both increase risk of bleeding in combination with coumadin No formal gout dx; agreeable to DC these medications @ discharge Educated patient on diet modifications to prevent high uric acid level Flank pain, resolved Patient reported sharp intermittent flank pain on admission No leukocytosis or fevers CTAP negative Intermittent dizziness: Appears to be orthostasis; BPs have ranged low 100's-160's No orthostasis noted and dizziness improved. Disposition: DVT Prophylaxis: On coumadin Code Status: FULL CODE PCP: Lindsay Del Cid Goal for DC Tues AM 01/08 I spent a total of 56 minutes coordinating, documenting and providing care for this patient excluding time spent in the performance of separately billed services or time spent by another provider/QHP. Admission and Anticipated Discharge Date Admission Date: January 01, 2025 Supervising Physician Co-Signing Physician Notes Attending addendum: The patient was seen and examined in the emergency room She presented with shortness of breath and urinary symptoms noted to have pulmonary embolism and mild CHF the patient on examination and investigation Clinically much better today and denies any significant symptoms On examination Lying in bed without any acute distress and she is morbidly obese Hemodynamically stable blood pressure on the upper side and is afebrile Chestdecreased breath sounds bilaterally with minimal crackles at the bases HeartS1-S2, regular Abdomendistended and bowel sound present Extremities1+ edema bilaterally with chronic skin changes and redness involving the both legs Noted to have wounds to the back of the neck and also right hip area CNSalert, awake and oriented x 3 Her labs, EKG and imaging studies reviewed Noted to have pulmonary embolism with negative scan for DVT and started on intravenous heparin and hypercoagulable studies have been sent Will start on oral Coumadin and that was discussed with the patient in detail Possible UTI and has been getting UTI Wound care consulted Cardiomyopathy with severe LV dysfunction and ICD placement remains reasonably stable Agree with assessment and plan as outlined above by Isha KERN and take the full responsibility of care in the hospital Dr Amber Puentes 01/03/2025 The patient was seen and examined in the medical telemetry unit. She has been doing much better and the swelling of the legs are improved and denies any shortness of breath at rest. She remains hemodynamically stable and requiring 3 L to maintain saturation. She has been getting intravenous heparin and also Coumadin is started for pulmonary embolism and getting ceftriaxone for Enterobacter cloacae complex UTI Remains medically stable with the assessment and plan as outlined above by CONCHA Doan and take responsibility of care in the hospital. Dr Amber Puentes 01/04/2025 The patient was seen and examined in medical telemetry unit She has been feeling much better and denies any significant symptoms She remains hemodynamically stable and saturating normally on room air Her INR is not yet therapeutic and will continue IV heparin and oral Coumadin Getting antibiotic for UTI and will be continued Nocturnal Pulse Oxymetry did not show any need for Oxygen Agree with assessment and plan as outlined above by Jaylene KERN and take the full responsibility of care in the hospital Dr Amber Puentes 01/05/2025 The patient was seen and examined in medical telemetry unit He complains to have discomfort secondary to 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 She has some discomfort being on the hospital bed but otherwise stable She remains stable otherwise hemodynamically and her INR remains therapeutic Will continue with intravenous heparin and Coumadin today and then heparin will be stopped tomorrow Likely to be discharged on Tuesday after completion of the IV antibiotic Agree with assessment and plan as outlined above by Jaylene KERN and take the full responsibility of care in the hospital DR Amber Puentes 01/06/2025 The patient was seen and examined with medical telemetry unit She has been out of bed on a chair and feeling better Denies any respiratory and/or urinary symptoms Her examination remains unremarkable Medications and labs were reviewedINR is therapeutic at 2.6 Agree with assessment and plan as outlined above by Jaylene Yuan for this caseger, CONCHA and dallin was e thr f-ull responsibility of care and hospital Dr Amber Puentes Subjective Pt sitting up dangling in her hospital bed in no apparent distress; she just finished breakfast Pt denies pain, chest pain, SOB, N/V/D, abdominal pain or tenderness; overt sign s of bleeding Had a BM 01/05 See A/P for further details. Review of Systems Review of Systems: Neuro: (-) Falls, trauma, slurred speech HEENT: (-) LI, dizziness, dysphagia, visual or auditory changes CV: (-) CP, palpitations, swelling Resp: (-) SOB GI: (-) appetite changes, N/V/D, bowel changes : (-) urinary changes Skin: (-) rashes Psych: (-) anxiety, depression Physical Exam Physical Exam: Neuro: AAOx4, PERRLA, no aphagia, memory changes, CNII-XII grossly intact HEENT: head normocephalic, moist mucus membranes CV: S1/S2, (-) M/G/R, (-) edema, cap refill < 3 seconds Resp: Lungs CTA in all wasserman. On RA GI: Abdomen large, S/NT/ND, Ax4 bowel sounds, (-) CVA tenderness Musculoskeletal: 5/5 B/L UE strength, 5/5 B/L LE strength. Uses a walker at times to ambulate Skin: (-) rashes , (-) erythema. B/L LE lymphedema; improved from baseline Psych: euthymic mood Results & Data Results & Data Vital Signs (Past 12 Hours) Vital Signs Temp Pulse Pulse Resp BP BP Pulse Ox 01/06/25 07:54 36.5 C 75 20 106/51 L 92 01/06/25 07:32 72 01/06/25 03:32 36.5 C 72 18 94/59 L 94 01/06/25 01:57 111 H 01/05/25 23:33 36.9 C 78 18 132/84 90 O2 Del Method 01/06/25 07:54 CPAP 01/06/25 07:32 01/06/25 03:32 BiPAP 01/06/25 01:57 01/05/25 23:33 Room Air Laboratory Results Short CBC 01/06/25 Range/Units 05:27 WBC 9.37 (4.8-10.8) K/ul Hgb 14.6 (12.0-16.0) g/dl Hct 46.9 (37.0-47.0) % Plt Count 226 (130-400) K/uL BMP 01/06/25 05:22 Sodium 134 L Potassium 3.7 Chloride 95 L Carbon Dioxide 32 BUN 32 H Creatinine 1.14 Glucose 173 H Calcium 9.1
[2025-01-07 04:11] VITALS: RESP 18
[2025-01-07 07:18] LABS: Hematocrit (blood only) 43.7 % (37.0-47.0); Hemoglobin 13.8 g/dl (12.0-16.0); Mean Corpuscular Hemoglobin 25.8 pg (25.0-34.0); Mean Corpuscular Volume 81.8 fL (80.0-100.0); Platelet Count 209 K/uL (130-400); RDW Standard Deviation 50.1 fL (36.4-46.3); Red Blood Count 5.34 M/uL (4.20-5.40); White Blood Count 9.94 K/ul (4.8-10.8)
[2025-01-07 07:24] LABS: INR 3.0 (0.9-1.1); Prothrombin Time 29.8 Seconds (9.0-12.0)
[2025-01-07 07:40] LABS: Anion Gap 8.0 (3-11); Blood Urea Nitrogen 37.0 mg/dl (6-23); Calcium 9.1 mg/dl (8.6-10.3); Carbon Dioxide 31.0 mmol/L (21-32); Chloride 97.0 mmol/L (98-107); Creatinine Clr Calc Pharmacy 72.7 ml/min; Glucose 165.0 mg/dl (70-99(Fasting)); Potassium 3.8 mmol/L (3.5-5.1); Sodium 136.0 mmol/L (136-145)
--- NOTE | 2025-01-07 10:49 | Pharmacy Report ---
Pharmacy Glycemic Short Note 2 - Date of Service January 07, 2025 - Glycemic Short BSG Results (Last 24 hours): 01/06/25 01/06/25 01/06/25 12:02 12:02 13:53 Glucose POC Glucose 326 H* 321 H* 236 H 01/06/25 01/06/25 01/07/25 16:50 20:16 06:43 Glucose 165 H POC Glucose 236 H 175 H 01/07/25 07:55 Glucose POC Glucose 178 H OUTPATIENT ANTIDIABETIC REGIMEN: * Lantus 67 units SQ q HS * glipizide 10mg PO q AM * Jardiance 10mg PO q AM * Trulicity 1.5mg SQ weekly HbA1c 10.45 as of 12/28/24 per provider note. ASSESSMENT: 01/07 * Amisha received 150 units of insulin yesterday (65 wer basal) * Fasting BSG this AM acceptable, will continue current basal regimen. * Post-prandial BSGs uncontrolled yesterday, carbohydrate ratio tightened yesterday, if BSGs continue to trend up will tighten again. Appears to be correcting so no changes to correction factor. * Heparin drip (in dextrose) was discontinued and she completed her antibiotic course. 01/04 * Amisha received 117 units of insulin yesterday (65 units of Lantus + 52 units of Novolog) with minimal improvement in glycemic control despite ~25% increase in insulin. * Fasting BSG of 171 mg/dL. Remains above goal, however, trending downward. Will continue to titrate basal insulin. * Persistent post prandial BSG elevation yesterday (all values reported to be > 200 mg/dL). Will further tighten Novolog parameters. 01/03 * Amisha received 92 units of insulin yesterday (55 units Lantus + 37 units Novolog) - all BSGs above goal range * Fasting BSG continues to trend upwards. Additional 10 units of Lantus ordered for this morning to make total of 65 units today. Will likely be able to resume once daily dosing at bedtime tomorrow. * Will further tighten carb coverage today. 01/02 * Amisha is a 59 year old female who was admitted with worsening SOB and was found to have a PE in her RUL. Pharmacy was consulted for glycemic management while she is admitted. * BSG on admit was 441mg/dL on labs. (anion gap and Co2 normal). 8 units iv regular insulin x 1 was given and she was stared on a weight based bolus insulin regimen with a stress of 3. Lantus 50 units x 1 was given at HS last night. * Fasting BSG was 173mg/dL this morning. Lantus was increased to 55 units at HS. Bolus insulin parameters will be continued as ordered last evening. * She is currently on a heparin drip and ceftriaxone for a presumed UTI. PLAN FOR INPATIENT GLYCEMIC CONTROL: * Hold outpatient diabetes medications * Basal insulin * Lantus 65 units SQ HS * Bolus insulin * NovoLog per scale ACHS or Q6hrs while NPO * Goal Range: Low 120 mg/dL - High 160 mg/dL * Correction Factor: 10 mg/dL/unit * Nutritional / Prandial insulin per carb ratio of 1 unit per 2.5 grams CHO consumed
[2025-01-07 11:26] VITALS: BP 127/70; PULSE 75; TEMP 98.3; O2SAT 96
--- NOTE | 2025-01-07 12:31 | Discharge Summary ---
Discharge Summary Date of Service January 07, 2025 Principal Dx & Hospital Course #1 = Principal Diagnosis (1) Pulmonary embolism: (2) CHF exacerbation: (3) UTI (urinary tract infection): (4) Flank pain: (5) HFrEF (heart failure with reduced ejection fraction): (6) Coronary artery disease: (7) Type 2 diabetes mellitus: (8) EDGARD treated with BiPAP: (9) Depression: (10) Gout: Plan This is a 59 year old female with PMH significant for type 2 diabetes with polyneuropathy, dyslipidemia, EDGARD on Bipap, HFrEF, mixed etiology cardiomyopathy with severe LV dysfunction s/p ICD (2018), hypertension, CAD s/p stent (2016), gout, osteoarthritis, depression and anxiety who presented to the ED on 01/01/2025 with worsening SOB and was found to have a PE in her RUL. 08/2022 echo from [facility]: LV cavity severely dilated, LV wall thickness not well visualized, EF 25-30%, LV global hypokinesis with akinetic apex; LA cavity mildly dilated; normal RV size and systolic function; valves not well visualized; no significant change compared to prior study in October 202101/02 echo: mild concentric LVH, LVEF 45-50%, LV mild global hypokinesis; RV not well visualized but appears to be normal in size and function; mild mitral annular calcification; grade II diastolic dysfunction; LA, aortic valve, pulmonic valve, tricuspid valve, aortic root not well visualized Pulmonary embolism Pt presented with SOB and was hypoxic 88% on RA Chest CTA revealed PE in RUL B/L venous Doppler (-) for DVT Coumadin started on 01/02 INR 3.0 today, Heparin gtt DC on 01/06 Discussed need for frequent lab monitoring on Coumadin and reportedly she will be compliant with going to [facility] as it is very close to where she lives - there is also [facility] mobile lab option if needed. She can ride her scooter down and if inclement weather, can have transport pick her up Lengthy conversation held regarding importance of therapeutic INR levels and clot risk. She was able to recall and verbalize what therapeutic levels are for her UTI UA positive with nitrites and bacteria Urine cx prelim Enterobacter cloacae complex IV ceftriaxone switched to cefepime per pharmacy Completed antibiotic course 01/06, sx resolved per patient HFrEF Cardiomyopathy with severe LV dysfunction s/p ICD Hypertension Venous stasis Follows with [facility] Cardiology last seen January 2024 Notes noncompliance with home torsemide BNP 230 on admission CXR without evidence of congestion or pulmonary edema; no adventitious lung sounds Has been receiving IV lasix 40mg daily for painful BLE edema 2/2 venous stasis Resume home dose Torsemide Continue Entresto and metoprolol Low Na+ diet and 2L fluid restriction Daily weights, Accurate I&Os Unstageable pressure ulcer of right hip Unstageable pressure ulcer of posterior neck See WOCN assessment and treatment plan from 01/02 Notes hip wound is very painful - PRN tylenol and oxycodone for severe pain No doses of Tylenol or Oxy since 01/02; oxy has been DC'd CAD s/p stent Dyslipidemia Continue aspirin, plavix, atorvastatin Type 2 diabetes Admitting glucose 441 with no anion gap and negative ketones in urine Uncontrolled sugars with average glucose 297 and medication noncompliance per record review A1C 11.7 Home glipizide, Trulicity, Jardiance on hold while inpt BSG ACHS and SSI while inpt [employer] RECOMMENDATIONS: 1.) Since you do well with your morning medications, try taking your insulin in the morning with your morning medications. 2.) Would consider changing you to a longer-acting insulin (Toujeo) to ensure your insulin is lasting for a full 24 hours. This insulin is also more concentrated meaning when you take your normal dose it is a smaller volume, which helps with better insulin absorption. 2.) Aim for balanced meals + protein/vegetables to help balance blood sugar levels and to support healing. 4.) Aim to maintain blood sugar levels below 200 (ideally below 150 before meals) to support healing. EDGARD Continue bipap at night and with naps Depression/anxiety Continue bupropion and sertraline Gout No formal gout dx; recommend discussing need for continuation of colchicine and allopurinol at follow up given increased risk of bleeding with concomitant coumadin use Flank pain, resolved Patient reported sharp intermittent flank pain on admission No leukocytosis or fevers CTAP negative Intermittent dizziness: Appears to be orthostasis; BPs have ranged low 100's-160's No orthostasis noted and dizziness improved. Notes For Next Care Provider munira GRUBER on coumadin with INR check later this week Medication Changes From Visit coumadin Admission HPI Per Admitting Provider 59 year old female with PMH significant for type 2 diabetes with polyneuropathy, dyslipidemia, EDGARD on Bipap, HFrEF, mixed etiology cardiomyopathy with severe LV dysfunction s/p ICD (2019), hypertension, CAD s/p stent (2016), gout, osteoarthritis, depression and anxiety who presented to the ED on 01/01/2025 with SOB since yesterday. Patient reports that she has been getting increasingly SOB at rest with associated dry cough over the last four months. She does not exert herself and is mostly wheelchair bound. However, notes an acute worsening in SOB since yesterday. Also reports two wounds that she has been trying to get into wound care for, with no success, and for this in combination with her SOB, presented to [facility] today. She has a history of HF but notes she is not compliant with taking torsemide daily due to inconvenience of having to urinate so much. She takes it about twice per week. She reports a wound on the back of her neck that started about 4 weeks ago. Also has a wound on her right hip that started about 3 weeks ago. Notes this wound is painful. Neither are improving despite wound care prescribed by PCP. She reports it feels very hot when she urinates and notes incomplete bladder emptying but denies dysuria. Reports intermittent severe sharp flank pain that wraps to her stomach x3 episodes in the last few days. Denies nausea or vomiting. Had one episode of diarrhea this morning. Denies fevers, chills, chest pain. Denies recent falls. Lives at [facility] in independent living. Admission Exam Per Admitting Provider General/Psych: morbidly obese, sitting up in bed, NAD, conversing easily Head: normocephalic, atraumatic Eyes: normal inspection, PERRL, conjunctivae pink ENT: external ear and nose normal, oropharynx normal Neck: normal visual inspection, trachea midline Respiratory: normal respiratory effort, lungs clear to auscultation, no wheeze/rales/rhonchi, no accessory muscle use Cardiovascular: regular rate and rhythm, no murmur/rub/gallop, no JVD Extremities: no cyanosis or clubbing, normal peripheral pulses, venous stasis of BLE with 2+ edema Abdomen/GI: normal bowel sounds, soft, nontender, CVA tenderness on right flank Neurologic/MSK: A+Ox3, motor strength 5/5, moves all extremities Skin: no rashes, normal color, warm and dry; small circular wound with scab formation and surrounding erythema on back of neck; small circular wound with eschar in the middle and surrounding erythema on right hip Discharge Exam Gen: WD/WN, NAD, sitting in bedside chair, A&Ox3, morbidly obese HEENT: Normocephalic, atraumatic, mucous membranes moist Lung: Clear to Auscultation bilaterally Heart: Regular rate, regular rhythm Abdomen: Soft, NT, ND +BS x 4 Extremities: trace edema Skin: Warm, no rash Updated Medication List Medication Instructions Recorded Confirmed Type allopurinol 100 mg tablet 100 mg PO QAM 01/01/25 01/01/25 History aspirin 81 mg tablet,delayed 81 mg PO DAILY 01/01/25 01/01/25 History release bupropion HCl 150 mg tablet,12 hr 150 mg PO QAM 01/01/25 01/01/25 History sustained-release cholecalciferol (vitamin D3) 50 50 mcg PO DAILY 01/01/25 01/01/25 History mcg (2,000 unit) capsule (Vitamin D3) clopidogrel 75 mg tablet 75 mg PO DAILY 01/01/25 01/01/25 History dulaglutide 1.5 mg/0.5 mL 1.5 mg subcut WK 01/01/25 01/01/25 History subcutaneous pen injector (Trulicity) empagliflozin 10 mg tablet 10 mg PO QAM 01/01/25 01/01/25 History (Jardiance) glipizide 10 mg tablet 10 mg PO QAM 01/01/25 01/01/25 History metoprolol succinate 25 mg 25 mg PO QAM 01/01/25 01/01/25 History tablet,extended release 24 hr sacubitril 97 mg-valsartan 103 mg 1 tab PO QAM 01/01/25 01/01/25 History tablet (Entresto) sertraline 100 mg tablet 200 mg PO DAILY 01/01/25 01/01/25 History torsemide 20 mg tablet 20 mg PO QAM 01/01/25 01/01/25 History vitamin B complex 1 tab PO DAILY 01/01/25 01/01/25 History colchicine 0.6 mg capsule 0.6 mg PO DAILY #1 cap 01/07/25 Rx insulin glargine 100 unit/mL (3 67 unit (0.67 mL) subcut DAILY #0 01/07/2501/01 Rx mL) subcutaneous pen (Lantus mL Solostar U-100 Insulin) warfarin 5 mg tablet 5 mg PO DAILY@1600 #30 tabs 01/07/25 Rx Hospital Stay Data Consultations 01/01/25 12:52 ED Decision to Admit Stat Diagnostic Imagining Performed 01/01/25 11:25 CT angio chest PE protocol Stat 01/01/25 14:19 CT Abdomen and Pelvis [CT abd pelvis wo con] Urgent US venous doppler LE BI Urgent Pending Results Patient Have Any Pending Studies at Discharge: No Discharge Instructions Given to Patient (Per Discharging Provider) MEDICATION CHANGES: NEW: Coumadin 5mg daily CHANGED: Take the same dose of Lantus but take in the morning instead. RECOMMENDATIONS FOR FOLLOW-UP: Follow up with PCP as scheduled. Follow up with coagulation clinic for INR check in 2-3 days. Continue medication regimen as scheduled aside from changes noted above. OTHER INSTRUCTIONS: Seek medical attention if you have: * temperature above 101 * chest pain or trouble breathing * abdominal pain, nausea, vomiting * diarrhea, dark stools or bloody stools * any unanswered questions or concerns Call 911 if symptoms are severe. Please take good care of yourself. Call if you have any questions or problems. You can reach a [facility] hospitalist on duty at [facility] 24 hours a day by calling [phone]. DIABETES RECOMMENDATIONS: 1.) Since you do well with your morning medications, try taking your insulin in the morning with your morning medications. 2.) Would consider changing you to a longer-acting insulin (Toujeo) to ensure your insulin is lasting for a full 24 hours. This insulin is also more concentrated meaning when you take your normal dose it is a smaller volume, which helps with better insulin absorption. 2.) Aim for balanced meals + protein/vegetables to help balance blood sugar levels and to support healing. 4.) Aim to maintain blood sugar levels below 200 (ideally below 150 before meals) to support healing. Total Time Total Time Spent Total Time Spent (In Minutes): 50 Supervising Physician Co-Signing Physician Notes Attending addendum: The patient was seen and examined in the emergency room She presented with shortness of breath and urinary symptoms noted to have pulmonary embolism and mild CHF the patient on examination and investigation Clinically much better today and denies any significant symptoms On examination Lying in bed without any acute distress and she is morbidly obese Hemodynamically stable blood pressure on the upper side and is afebrile Chestdecreased breath sounds bilaterally with minimal crackles at the bases HeartS1-S2, regular Abdomendistended and bowel sound present Extremities1+ edema bilaterally with chronic skin changes and redness involving the both legs Noted to have wounds to the back of the neck and also right hip area CNSalert, awake and oriented x 3 Her labs, EKG and imaging studies reviewed Noted to have pulmonary embolism with negative scan for DVT and started on intravenous heparin and hypercoagulable studies have been sent Will start on oral Coumadin and that was discussed with the patient in detail Possible UTI and has been getting UTI Wound care consulted Cardiomyopathy with severe LV dysfunction and ICD placement remains reasonably stable Agree with assessment and plan as outlined above by Isha KERN and take the full responsibility of care in the hospital Dr Amber Puentes 01/03/2025 The patient was seen and examined in the medical telemetry unit. She has been doing much better and the swelling of the legs are improved and denies any shortness of breath at rest. She remains hemodynamically stable and requiring 3 L to maintain saturation. She has been getting intravenous heparin and also Coumadin is started for pulmonary embolism and getting ceftriaxone for Enterobacter cloacae complex UTI Remains medically stable with the assessment and plan as outlined above by CONCHA Doan and take responsibility of care in the hospital. Dr Amber Puentes 01/04/2025 The patient was seen and examined in medical telemetry unit She has been feeling much better and denies any significant symptoms She remains hemodynamically stable and saturating normally on room air Her INR is not yet therapeutic and will continue IV heparin and oral Coumadin Getting antibiotic for UTI and will be continued Nocturnal Pulse Oxymetry did not show any need for Oxygen Agree with assessment and plan as outlined above by Jaylene KERN and take the full responsibility of care in the hospital Dr Amber Puentes 01/05/2025 The patient was seen and examined in medical telemetry unit He complains to have discomfort secondary to his electrodes that are placed on conveyor monitor she She has some discomfort being on the hospital bed but otherwise stable She remains stable otherwise hemodynamically and her INR remains therapeutic Will continue with intravenous heparin and Coumadin today and then heparin will be stopped tomorrow Likely to be discharged on Tuesday after completion of the IV antibiotic Agree with assessment and plan as outlined above by Jaylene KERN and take the full responsibility of care in the hospital DR Amber Puentes 01/06/2025 The patient was seen and examined with medical telemetry unit She has been out of bed on a chair and feeling better Denies any respiratory and/or urinary symptoms Her examination remains unremarkable Medications and labs were reviewedINR is therapeutic at 2.6 Agree with assessment and plan as outlined above by Jaylene Yuan for this casegerCONCHA and dallin was e thr f-ull responsibility of care and hospital Dr Amber Puentes 01/07/2025 The patient was seen and examined in medical telemetry unit She remains stable and will be discharged home this afternoon Denies any symptoms and remains hemodynamically stable Unremarkable examination Her labs and imaging studies and also medications reviewed Pulmonary embolism on Coumadin and INR is therapeutic Recent UTI which was treated appropriately Agree with assessment plan as outlined above by Liz Gill PA-C and take the full responsibility of care in the hospital. Dr Amber Puentes
[2025-01-07] MEDS: INSULIN ASPART PER UNIT CHARGE SC SCH (12:57)
[2025-01-08] MEDS ORDERED: INSULIN ASPART PER UNIT CHARGE SC SCH (07:30)
[2025-01-08 20:27] LABS: Factor 5 Mutation NEGATIVE
== END 2025-01-07 14:38 | disposition home health service (06) | DRG 175 ==
LOC: ED 10:28 → 2W 14:19